=== PATIENT | female | born 1975 | race Caucasian/White ===

== ENCOUNTER 2020-08-25 10:09 | Outpatient (NON) | payer OTHER, SELFPAY ==
[2020-08-25 22:01] LABS: SARS-CoV-2 RNA PCR Positive
== END 2020-08-25 10:10 ==
LOC: ANHCOVIDDT 10:10
PROVIDERS: Visit Provider Family Medicine
DX: U07.1 COVID-19 (principal)
CPT/HCPCS: 87635; C9803; U0003

== ENCOUNTER → 2020-11-25 10:33 | Outpatient (CLI) | payer OTHER, SELFPAY ==
--- NOTE | ~2020-11-25 | MR_ITS ---
EXAMINATION: MR knee LT wo con DATE: 11/25/2020 11:16 INDICATION: Generalized left knee pain TECHNIQUE: Magnetic resonance imaging (MRI) of the left knee was performed without intravenous contra st. Sequences included coronal PD-weighted FSE, coronal PD-weighted FS FSE, sagittal T2-weighted FSE , sagittal PD-weighted FS FSE and axial PD weighted fat saturated FSE. COMPARISON: None. FINDINGS: Medial compartment: Medial meniscus is normal. Approximately 1.7 x 1 cm region of significant increased signal along the anterior weightbearing medial femoral condyle, unclear whether this represents fluid along a region o f partial-thickness chondral ulceration or more likely increased cartilage signal due to swelling or fibrillation without loss of cartilage thickness. Remaining cartilage is normal. Lateral compartment: Lateral meniscus is normal. Articular cartilage is normal. Patellofemoral compartment: Small region of full-thickness chondral ulceration with underlying cortical irregularity and subartic ular increased marrow signal at the superomedial aspect of the lateral patellar facet. Partial-thickn ess cartilage loss and deep fissuring along the more inferior aspect of the lateral patellar facet. T rochlear cartilage is normal. Ligaments and tendons: Anterior and posterior cruciate ligaments are normal. The medial collateral ligament and fibular merrill ateral ligament complex are normal. The extensor mechanism is normal. The visualized medial and later al hamstring tendons as well as the iliotibial band are normal. Fluid: Small left knee joint effusion collecting in the lateral gutter of the suprapatellar pouch. No loose osteochondral bodies identified. Osseous/other: There are regions of red marrow reexpansion the distal femur and proximal tibia. Low signal intensity bone island at the lateral tibial plateau. No fracture or pathologic marrow replacing process. Serpi ginous subcutaneous varicosities about the knee most prominent anteriorly. IMPRESSION: 1. 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 2. Additional chondromalacia, likely mild to moderate grade along the anterior weightbearing medial f emoral condyle. Reviewed, dictated and finalized at location B. IMPRESSION: 1. 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 2. Additional chondromalacia, likely mild to moderate grade along the anterior weightbearing medial femoral condyle.
== END ==
PROVIDERS: Visit Provider Nurse Practitioner Family
DX: M25.562 Pain in left knee (principal); M94.262 Chondromalacia, left knee
CPT/HCPCS: 73721

== ENCOUNTER → 2021-01-05 07:25 | Outpatient (CLI) | payer OTHER, SELFPAY ==
--- NOTE | ~2021-01-05 | XR_ITS ---
XR knee RT 3V 01/05/2021 07:52 Indication: Right knee pain Procedure: 3 views right knee Comparison: No prior studies for comparison. Findings: Mild tricompartment osteoarthritis of the right knee. No fracture, subluxation or dislocati on. No significant joint effusion. No foreign bodies. Impression: 1: Mild tricompartment osteoarthritis of the right knee. Reviewed, dictated and finalized at location B. Impression: 1: Mild tricompartment osteoarthritis of the right knee.
== END ==
PROVIDERS: PCP Family Medicine; Visit Provider Family Medicine
DX: M25.561 Pain in right knee (principal); M17.11 Unilateral primary osteoarthritis, right knee
CPT/HCPCS: 73562

== ENCOUNTER → 2021-02-28 14:54 | Outpatient (CLI) | payer OTHER, SELFPAY ==
--- NOTE | ~2021-02-28 | MM_ITS ---
EXAMINATION: MM screening deepak BI w jesús HISTORY: Screening mammogram TECHNIQUE: Craniocaudal and mediolateral oblique 3-D tomosynthesis images were obtained and synthetic 2-D images were generated. CAD analysis was submitted and interpreted. COMPARISON: 04/21/2019, 02/11/2018 bilateral digital screening mammogram examinations BREAST PARENCHYMAL COMPOSITION: The breasts are almost entirely fatty. FINDINGS: There is no evidence of suspicious mass, calcification, or architectural distortion to sugg est malignancy in either breast. There has been no suspicious interval change. IMPRESSION: 1. No mammographic evidence of malignancy. 2. Recommend routine screening mammography in one year. BI-RADS Category 1: Negative Reviewed, dictated and finalized at location A.
== END ==
PROVIDERS: Visit Provider Family Medicine
DX: Z12.31 Encounter for screening mammogram for malignant neoplasm of breast (principal)
CPT/HCPCS: 77063; 77067

== ENCOUNTER 2022-05-13 23:54 | Emergency (ER) | payer BC, SELFPAY ==
[2022-05-14 00:11] VITALS: BP 140/111; PULSE 102; RESP 18; TEMP 36.4; O2SAT 97
--- NOTE | 2022-05-14 00:19 | ED.EAR ---
HPI - Ear Problem General Chief complaint: Ear Stated complaint: Left ear pain Time Seen by Provider: 05/14/22 00:17 History of Present Illness HPI Narrative: 46-year-old female presents the emergency room complaints of left ear pain. Patient states for the last 7 days she has been experiencing sinus congestion postnasal drip. Endorses left ear ache began today. Denies any hearing changes or hearing loss. Denies fever. Related Data Home Medications Medication Instructions Recorded Confirmed ascorbic acid (vitamin C) 500 mg 500 mg PO DAILY 01/16/21 02/27/21 tablet cholecalciferol (vitamin D3) 50 50 mcg PO DAILY 01/16/21 02/27/21 mcg (2,000 unit) tablet vitamin B complex (B 1 tablet PO DAILY 01/16/21 02/27/21 Complex-Vitamin B12 tablet) Allergies Allergy/AdvReac Type Severity Reaction Status Date / Time No Known Allergies Allergy Unknown Verified 07/20/21 14:13 Review of Systems Review of Systems: CONSTITUTIONAL: Denies fever, chills, or sweats. EYES: Denies visual changes, redness, or discharge. ENT: Reports left ear pain CARDIOVASCULAR: Denies chest pain, palpitations, or edema. RESPIRATORY: Denies cough or dyspnea. GASTROINTESTINAL: Denies abdominal pain, nausea, vomiting, or diarrhea. GENITOURINARY: Denies dysuria or hematuria. SKIN: Denies rash or itching. MUSCULOSKELETAL: Denies back pain, joint pain, or myalgia. NEUROLOGIC: Denies headache, numbness, dizziness, or weakness. PSYCHIATRIC: Denies anxiety or depression. [facility] Past Medical History Medical History Arthritis Back pain with history of spinal surgery BMI greater than 40 Chondromalacia, patella Congestion of nasal sinus Diabetes Dizziness Ear ringing High cholesterol Knee effusion Left knee DJD Left knee pain Light headedness Medial meniscus tear Right knee DJD Right knee pain Vertigo Wears glasses Surgical History Surgical History History of classical section 1999 History of foot surgery Rt foot- 2019 [facility]ora [facility] Zobens History of hip replacement 2018 Dr. Trinidad History of laparoscopic cholecystectomy 2003 History of lumbar discectomy L5 2010, Dr. Aponte Family History Family History Other Carcinoma of colon Cerebrovascular accident Family history of arthritis Family history of chronic obstructive pulmonary disease Family history of congestive heart failure Family history of elevated blood lipids Family history of hearing loss Family history of lung disease Family history of malignant neoplasm Family history of osteoporosis Neuropathy Non-Hodgkin lymphoma Social History Social History Smoking packs per day: 1 Smoking cigarettes per day: 20.0 Years smoked: 20 Smoking pack-years: 20.00 Smoking end date: 03/12/15 Alcohol intake: never Gender identity (if verbalized by the patient): Female Exam Narrative: GENERAL: Well-appearing, well-nourished, no physical limitations, and in no acute distress. HEAD: Normocephalic, atraumatic. EYES: Conjunctivae normal, PERRLA and EOMI. ENT: External nose normal, Nares clear, no rhinorrhea or epistaxis. Mucous membranes moist. Oropharynx without tonsillar hypertrophy exudate or other lesions. Left TM erythematous NECK: Supple. No meningeal signs. No adenopathy or masses. No carotid bruits or JVD CHEST: Clear to auscultation. No respiratory distress. No wheezes rales or rhonchi. No tenderness. HEART: Regular rate and rhythm. No murmur heard. Normal peripheral pulses. EXTREMITIES: Normal range of motion. No edema. No clubbing or cyanosis SKIN: Warm, dry, no rash. No noted wounds NEURO: No focal deficits. Alert and oriented x3. MAEW. CN's II-XI intact bilaterally, normal gait PSYCH: Cooperative. Normal mood and af
== END 2022-05-14 00:25 | disposition home or self-care (01) ==
LOC: ANHED 05-14 00:22
PROVIDERS: Emergency Provider Nurse Practitioner Family
DX: H66.92 Otitis media, unspecified, left ear (principal); E11.9 Type 2 diabetes mellitus without complications; E78.00 Pure hypercholesterolemia, unspecified; M17.0 Bilateral primary osteoarthritis of knee; Z96.649 Presence of unspecified artificial hip joint; Z87.891 Personal history of nicotine dependence
CPT/HCPCS: 99283

== ENCOUNTER → 2022-11-24 13:29 | Emergency (ER) | payer BC, SELFPAY ==
[2022-11-24 13:40] VITALS: BP 146/82; PULSE 92; RESP 17; TEMP 37; O2SAT 100
--- NOTE | 2022-11-24 13:56 | ED.BACK ---
HPI - Back Pain/Injury General Chief Complaint: Back Pain/Injury Stated Complaint: upper back pain Time Seen by Provider: 11/24/22 13:49 History of Present Illness HPI Narrative: 47 y/o female presents with right mid back pain that has been going on for a year on and off but over the past couple of days it has flared up. patient denies any trauma or injury. patient states she slept at a hotel and the bed was hard. patient has been taking baclofen with no relief. patient has been working with pcp for pulled muscle. patient denies any other symptoms. Related Data Home Medications Medication Instructions Recorded Confirmed ascorbic acid (vitamin C) 500 mg 500 mg PO DAILY 01/16/21 02/27/21 tablet cholecalciferol (vitamin D3) 50 50 mcg PO DAILY 01/16/21 02/27/21 mcg (2,000 unit) tablet vitamin B complex (B 1 tablet PO DAILY 01/16/21 02/27/21 Complex-Vitamin B12 tablet) Allergies Allergy/AdvReac Type Severity Reaction Status Date / Time No Known Allergies Allergy Unknown Verified 11/24/22 13:55 Review of Systems Review of Systems: All systems reviewed & are unremarkable except as noted in HPI and below Constitutional: Constitutional: Reports no additional constitutional complaints Eyes: Eyes: Reports no additional eye complaints Musculoskeletal: Musculoskeletal: Reports other (back pain) [facility] Past Medical History Medical History Arthritis Back pain with history of spinal surgery BMI greater than 40 Chondromalacia, patella Congestion of nasal sinus Diabetes Dizziness Ear ringing High cholesterol Knee effusion Left knee DJD Left knee pain Light headedness Medial meniscus tear Right knee DJD Right knee pain Vertigo Wears glasses Surgical History Surgical History History of classical section 1999 History of foot surgery Rt foot- 2019 [facility]ora [facility] Zot[facility] History of hip replacement 2018 Dr. Trinidad History of laparoscopic cholecystectomy 2003 History of lumbar discectomy L5 2010, Dr. Aponte Family History Family History Other Carcinoma of colon Cerebrovascular accident Family history of arthritis Family history of chronic obstructive pulmonary disease Family history of congestive heart failure Family history of elevated blood lipids Family history of hearing loss Family history of lung disease Family history of malignant neoplasm Family history of osteoporosis Neuropathy Non-Hodgkin lymphoma Social History Social History Smoking packs per day: 1 Smoking cigarettes per day: 20.0 Years smoked: 20 Smoking pack-years: 20.00 Smoking end date: 03/12/15 Alcohol intake: never Gender identity (if verbalized by the patient): Female Exam Const: General: cooperative and healthy appearing HENMT: Head: normal to inspection Ears: hearing grossly normal bilaterally Eyes: General: appearance normal, both eyes and all related structures Neck: Neck: normal visual inspection Chest: Chest palpation & inspection: normal inspection of the chest Resp: Auscultation: clear to auscultation bilaterally Cardio: Rate: regular rate GI: GI Palp: Yes Soft to palpation Back/Spine/Pelvis: Back: back tenderness (right thoracic below scapula. increased pain with palpation and movement. ) Skin: General skin exam: normal color Neuro: General: oriented to person, oriented to place, oriented to time and patient oriented x3 Extrem: General: normal to inspection Psych: Appearance: grossly normal Course Course Emergency Course: no cva tenderness. palpation to right thoracic muscular. no recent trauma. patient agreeable with treating with medication and no x-ray r/t no trauma or recent injury Vital Signs Vital signs: Vital Signs Temperat
[2022-11-24 14:17] VITALS: PULSE 78; RESP 16; O2SAT 98
== END | disposition home or self-care (01) ==
PROVIDERS: Emergency Provider Nurse Practitioner Family
DX: M62.830 Muscle spasm of back (principal); M54.9 Dorsalgia, unspecified; Z87.891 Personal history of nicotine dependence; M19.90 Unspecified osteoarthritis, unspecified site; E11.9 Type 2 diabetes mellitus without complications; E78.5 Hyperlipidemia, unspecified
CPT/HCPCS: 99283

== ENCOUNTER 2023-03-29 09:08 | Emergency (ER) | payer BC, SELFPAY ==
--- NOTE | ~2023-03-29 | CT_ITS ---
Non-contrast Head CT History: Headache Technique: Axial non-contrast imaging of the brain was performed. Dose reduction technique was used on this scan by utilizing automated exposure control and iterative reconstruction technique. The dose -length product (DLP) was 605.33 mGy-cm. Findings: There is no evidence of intracranial hemorrhage, mass lesion, or acute infarct. Brain par enchyma appears normal. The ventricles and subarachnoid spaces are normal in size. The calvarium ap pears normal. The visualized paranasal sinuses and mastoid air cells are clear. Impression: No significant abnormality seen. Reviewed, dictated and finalized at location . Impression: No significant abnormality seen.
[2023-03-29 09:15] VITALS: BP 132/74; PULSE 75; RESP 18; TEMP 36.1; O2SAT 100
[2023-03-29] MEDS: SODIUM CHLORIDE 0.9% IV 1,000 ML 999 ML IV CONT (09:59)
[2023-03-29] MEDS: PROCHLORPERAZINE EDISYLATE 10 MG/2 ML VIAL IV PUSH (09:59)
[2023-03-29] MEDS: diphenhydrAMINE HCl INJ 50 MG/ML VIAL 25 MG IV PUSH (10:00)
--- NOTE | 2023-03-29 10:03 | ED.GENADULT ---
HPI - General Adult General Chief complaint: Headache Stated complaint: Headache Time Seen by Provider: 03/29/23 09:26 Source: patient Mode of arrival: ambulatory Limitations: no limitations History of Present Illness HPI narrative: This is a 47-year-old female who presents to the ED with chief complaint of headache onset x2 days. Patient states that it was gradual onset. She reports it started out in the occiput and now feels like it is in the bilateral frontal head area and behind the eyes. She reports intermittent dizziness but states she is not currently dizzy. She reports she has had a couple of headaches in the past few months but has no major migraine history. She states headache is not exertional and not provoked by exercise or position. She also notes 3 episodes of loose stools in the last couple of days. 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 Denies abdominal pain, chest pain, shortness of breath. Denies any falls, LOC, seizures. Denies numbness, weakness, speech changes. Related Data Home Medications Medication Instructions Recorded Confirmed ascorbic acid (vitamin C) 500 mg 500 mg PO DAILY 01/16/21 02/27/21 tablet cholecalciferol (vitamin D3) 50 50 mcg PO DAILY 01/16/21 02/27/21 mcg (2,000 unit) tablet vitamin B complex (B 1 tablet PO DAILY 01/16/21 02/27/21 Complex-Vitamin B12 tablet) Allergies Allergy/AdvReac Type Severity Reaction Status Date / Time No Known Allergies Allergy Unknown Verified 03/29/23 09:26 [facility] Past Medical History Medical History Arthritis Back pain with history of spinal surgery BMI greater than 40 Chondromalacia, patella Congestion of nasal sinus Diabetes Dizziness Ear ringing High cholesterol Knee effusion Left knee DJD Left knee pain Light headedness Medial meniscus tear Right knee DJD Right knee pain Vertigo Wears glasses Surgical History Surgical History History of classical section 1999 History of foot surgery Rt foot- 2019 [facility]ora [facility] Zob[facility] History of hip replacement 2018 Dr. Trinidad History of laparoscopic cholecystectomy 2003 History of lumbar discectomy L5 2010, Dr. Aponte Family History Family History Other Carcinoma of colon Cerebrovascular accident Family history of arthritis Family history of chronic obstructive pulmonary disease Family history of congestive heart failure Family history of elevated blood lipids Family history of hearing loss Family history of lung disease Family history of malignant neoplasm Family history of osteoporosis Neuropathy Non-Hodgkin lymphoma Social History Social History Smoking packs per day: 1 Smoking cigarettes per day: 20.0 Years smoked: 20 Smoking pack-years: 20.00 Smoking end date: 03/12/15 Alcohol intake: never Gender identity (if verbalized by the patient): Female Exam Narrative: GENERAL: Well-appearing, well-nourished, and in no acute distress. HEAD: Normocephalic, atraumatic. EYES: PERRLA and EOMI. ENT: Nares clear, no rhinorrhea or epistaxis. Mucous membranes moist. Oropharynx without tonsillar hypertrophy exudate or other lesions. NECK: Supple. No adenopathy or masses. CHEST: No respiratory distress. Clear to auscultation. No wheezes rales or rhonchi HEART: Regular rate and rhythm. No murmur heard. Normal peripheral pulses. ABDOMEN: Soft, nontender, nondistended, normal active bowel sounds. MSK: Normal range of motion. No edema. Ambulatory. SKIN: Warm, dry, no rash. NEURO: Alert and oriented x3. No focal deficits. Cranial nerves II through XII intact. PSYCH: Normal mood and affect. Course Vital Signs Vital signs: Vital Signs Temperature 96.9 F L 03/29/23 09:1
[2023-03-29 10:06] LABS: Basophils Percent Auto 0.3 % (0.2-1.2); Eosinophils Absolute Auto 0.3 K/mm3 (0-0.3); Eosinophils Percent Auto 5.7 % (0-4.4); Hematocrit 41.4 % (37.0-47.0); Hemoglobin 13.6 g/dL (12.0-15.0); Immature Granulocyte Absolute 0.01 K/mm3 (0.00-0.031); Immature Granulocyte Percent A 0.2 % (0-0.5); Lymphocytes Absolute Auto 2.27 K/mm3 (0.9-3.2); Lymphocytes Percent Auto 38.3 % (18.3-44.2); Mean Corpuscular HGB Conc 32.9 g/dl (32-36); Mean Corpuscular Hemoglobin 27.6 pg (26-34); Mean Platelet Volume 9.2 fl (7.4-10.4); Monocytes Absolute Auto 0.5 K/mm3 (0.1-0.6); Monocytes Percent Auto 7.8 % (2.6-8.5); Neutrophils Absolute Auto 2.8 K/mm3 (1.3-6.7); Neutrophils Percent Auto 47.7 % (45.5-73.1); Platelet Count Result 258 k/mm3 (150-375); Red Blood Count 4.93 M/mm3 (4.2-5.4); Red Cell Distribution Width 13.1 % (11.5-14.5); White Blood Count 5.9 K/mm3 (4.5-10.0)
[2023-03-29] MEDS: KETOROLAC 15 MG/ML VIAL (*BKC) IV PUSH (10:08)
[2023-03-29 10:09] VITALS: BP 115/52; PULSE 70; RESP 18; O2SAT 98
[2023-03-29 10:18] LABS: Alanine Aminotransferase 20 U/L (6-35); Albumin Level 4.9 g/dL (3.5-5.1); Alkaline Phosphatase 64 U/L (38-126); Anion Gap 8 mmol/L (8-16); Aspartate Amino Transferase 21 U/L (14-36); Bilirubin,Total 0.7 mg/dL (0.2-1.3); Blood Urea Nitrogen 16 mg/dL (7-17); Calcium 9.6 mg/dL (8.4-10.2); Carbon Dioxide 27 mmol/L (22-30); Chloride 102 mmol/L (98-107); Estimated CRCL calculation 161 ml/min; Estimated Glomerular Filt Rate > 60; Glucose 147 mg/dL (65-110); Sodium 137 mmol/L (137-145)
[2023-03-29 10:25] LABS: Appearance Urine Cloudy (Clear); Bacteria Urine Rare /hpf; Bilirubin Urine Negative (Negative); Blood Urine Negative (Negative); Color Urine Yellow (Yellow); Glucose Urine UA Negative (Negative); Ketones Urine Negative (Negative); Leukocyte Esterase Ur 2+ LEU/UL (Negative); Nitrate Urine Negative (Negative); Non Pathogenic Casts 0-2; Protein Urine Negative (Negative); RBC Urine 0-2 /hpf (0-2); Squamous Epithelial Cell Urine Moderate /hpf (Few); Urobilinogen Urine 0.2 mg/dL (<2.0)
[2023-03-29 10:28] LABS: Add Urine Microscopic? YES
[2023-03-29 11:04] VITALS: BP 121/53; PULSE 82; RESP 16; O2SAT 100
== END 2023-03-29 11:06 | disposition home or self-care (01) ==
PROVIDERS: Emergency Provider Physician Assistant; PCP Physician Assistant
DX: R51.9 Headache, unspecified (principal); E11.9 Type 2 diabetes mellitus without complications; E78.00 Pure hypercholesterolemia, unspecified; M17.0 Bilateral primary osteoarthritis of knee; Z96.649 Presence of unspecified artificial hip joint; Z87.891 Personal history of nicotine dependence
CPT/HCPCS: 36415; 70450; 80053; 81001; 81025; 85025; 87086; 96361; 96374; 96375; 99284; J0780; J1200; J1885; J7030

== ENCOUNTER → 2023-07-02 09:43 | Outpatient (CLI) | payer BC, SELFPAY ==
--- NOTE | ~2023-07-02 | MM_ITS ---
EXAMINATION: MM screening deepak BI w jesús HISTORY: Screening mammogram TECHNIQUE: Craniocaudal and mediolateral oblique 3-D tomosynthesis images were obtained and synthetic 2-D images were generated. CAD analysis was submitted and interpreted. COMPARISON: 02/28/2021, 04/21/2019 bilateral screening mammogram examinations BREAST PARENCHYMAL COMPOSITION: There are scattered areas of fibroglandular density. FINDINGS: There is no evidence of suspicious mass, calcification, or architectural distortion to sugg est malignancy in either breast. There has been no suspicious interval change. IMPRESSION: 1. No mammographic evidence of malignancy. 2. Recommend routine screening mammography in one year. BI-RADS Category 1: Negative Reviewed, dictated and finalized at location A.
== END ==
PROVIDERS: PCP Physician Assistant; Visit Provider Physician Assistant
DX: Z12.31 Encounter for screening mammogram for malignant neoplasm of breast (principal)
CPT/HCPCS: 77063; 77067

== ENCOUNTER 2024-11-16 13:19 | Outpatient (CLI) | payer BC, SELFPAY ==
--- NOTE | ~2024-11-16 | XR_ITS ---
EXAMINATION: XR lg joint inject/asp w image DATE: 11/16/2024 14:42 INDICATION: Right hip pain TECHNIQUE: Radiographs of the right hip were obtained. A time-out was performed to verify the patie nt's name, date of , and procedure to be performed. The procedure including the risks, benefits, and alternatives was discussed with the patient. Risks discussed included bleeding and infection. Th e patient understood the risks and agreed to proceed. The skin overlying the right hip joint was prep ped and draped in usual sterile fashion. Anesthetic was administered with 1% lidocaine subcutaneousl y. A 22 G spinal needle was advanced under fluoroscopic guidance into the joint. Injectate consisti ng of Omnipaque 240 was instilled to confirm appropriate placement. The steroid injectate was mixed ( 80 mg of Depo-Medrol, 2 cc of 0.5 Marcaine and 5 cc of 1% lidocaine) and injected. The needle was rem key and the entry site was cleaned and dressed. There were no immediate complications. Fluoroscopy exposure time was 2 minutes. The total number of images was 1. Dose: 20.1 Gycm2. FINDINGS: Real-time fluoroscopy demonstrates the needle and contrast in the right hip joint. IMPRESSION: Technically successful fluoroscopic guided right hip injection, as detailed above. Reviewed, dictated and finalized at location [] IMPRESSION: Technically successful fluoroscopic guided right hip injection, as detailed abo lore.
--- OUTSIDE RECORDS SUMMARY | 2024-11-16 15:22 | XMS_ITS | Encounter Summary ---
Author Organization [facility] Health Address [address] [place] [address] Care Team Providers Care Entry Level Truck Driver Name Role Phone Keyon Ochoa DC Primary Care Provider [phone] Encounter Details Date Type Department Care Team (Late st Contact Info) Description 08/17/2011 [facility] Outpatient Visit EXTERNAL NON-[facility] DEPT Devon Aponte MD RETIRED Social History Tobacco Use Types Packs/Day Years Used Date Smoking Tobacco: Every Day Cigarettes 0.5 18 Smokeless Tobacco: Never Alcohol Use Standard Drinks/Week Comments No 0 (1 standard drink = 0.6 oz pur e alcohol) Sex and Gender Information Value Date Recorded Sex Assigned at Not on file Gender Identity Not on file Sexual Orientation Not on file documented as of this encounter Plan of Treatment Not on file documented as of this encounter Visit Diagnoses Not on filedocumented in this encounter Care Teams Entry Level Truck Driver Relationship Specialty Start Date End Date Keyon Ochoa DC [address] [place] [address] PCP - General 05/16/11 documented as of this encounter
--- OUTSIDE RECORDS SUMMARY | 2024-11-16 15:22 | XMS_ITS | Referral Summary ---
Author Organization [facility] Address [address] [place] [address] Care Team Providers Care Fitness Trainer Name Role Phone Keyon Ochoa DC Primary Care Provider [phone] Source Comments [facility],non-owned Affiliates and Associated Physician Practices is amultiple site organization consisting of ambulatory clinics and hospital sitesin [place], [place], [place] and [place]. This disclosure is being madepursuant to the Care Everywhere program and may not contain all information available regarding this patient. Last updated 18.[facility] Allergies No known active allergies Medications * Be aware that medications may not be up to date on this document. Alwaysverify current medications with the patient. Medication Sig Dispensed Refills Start Date End Date Status hydrocodone-acetami nophen (NORCO) 5-325 MG tablet Take 1-2 Tabs by mouth every 6 hours as needed for Pain. 40 Tab 0 05/16/2011 Active acetaminophen (TYLENOL) 325 MG tablet Take 2 Tabs by mouth every 6 hours as needed for Pain. Maximum allowable Acetaminophen amount = 4 Grams (4000 mg) / 24 hours. 200 05/24/2011 Active Active Problems Problem Noted Date Diagnosed Date Leg pain 05/15/2011 Social History Tobacco Use Types Packs/Day Years Used Date Smoking Tobacco: Every Day Cigarettes 0.5 18 Smokeless Tobacco: Never Tobacco Cessation:Ready to Q uit: Yes; Counseling Given: Yes Alcohol Use Standard Drinks/Week Comments No 0 (1 standard drink = 0.6 oz pur e alcohol) Sex and Gender Information Value Date Recorded Sex Assigned at Not on file Gender Identity Not on file Sexual Orientation Not on file Last Filed Vital Signs Vital Sign Reading Time Taken Comments Blood Pressure 125/77 05/25/2011 7:10 AM CDT Pulse 116 05/25/2011 7:10 AM CDT Temperature 36.9 C (98.4 F) 05/25/2011 7:10 AM CDT Respiratory Rate 18 05/25/2011 7:10 AM CDT Oxygen Saturation 92% 05/25/2011 7:10 AM CDT Inhaled Oxygen Concentration - - Weight 145.2 kg (320 lb) 05/25/2011 2:53 AM CDT Height 180.3 cm (5' 11 ) 05/24/2011 7:06 AM CDT Body Mass Index 44.63 05/24/2011 7:06 AM CDT Plan of Treatment Not on file Advance Directives * FULL RESUSCITATION (Latest Code Status on File) Date Activated Date Inactivated Comments 05/24/2011 2:52 PM 05/25/2011 9:21 PM Care Teams Fitness Trainer Relationship Specialty Start Date End Date Keyon Ochoa DC [facility] [place] [address] PCP - General 05/16/11
--- OUTSIDE RECORDS SUMMARY | 2024-11-16 15:22 | XMS_ITS | Clinical Summary ---
Author Organization [facility] Address [address] [place] [address] Care Team Providers Care Senior Technical Analyst Name Role Phone Keyon Ochoa DC Primary Care Provider [phone] Source Comments [facility],non-owned Affiliates and Associated Physician Practices is amultiple site organization consisting of ambulatory clinics and hospital sitesin [place], [place], [place] and [place]. This disclosure is being madepursuant to the Care Everywhere program and may not contain all information available regarding this patient. Last updated 18.[facility] Allergies No known active allergies Medications * [...] Noted Date Diagnosed Date Leg pain 05/15/2011 Family History Relation Name Status Comments Father Alive Mother Alive Sister Alive Social History Tobacco Use Types Packs/Day Years [...] 05/24/2011 7:06 AM CDT Plan of Treatment Health Maintenance Due Date Last Done Comments COLOGUARD (AGES 45-75) - COL ON CA SCREENING 1975 COLON MONITORING 1975 COLONOSCOPY - COLON CA SCREENING 1975 CT COLONOGRAPHY - COLON CA SCREENING 1975 Colorectal Cancer Screening 1975 FIT - COLON CA SCREENING 1975 FLEX SIG - COLON CA SCREENING 1975 LIPID TESTING 1975 MAMMOGRAM 1975 PAP SMEAR 1975 HIV SCREENING 1990 HEPATITIS C SCREENING 09/26/1993 DTAP/TDAP/TD VACCINES (1 - Tdap) 1994 HEPATITIS B VACCINE (1 of 3 - 19+ 3-dose series) 1994 PNEUMOCOCCAL VACCINE (1 of 2 - PCV) 1994 COVID-19 VACCINE (2023-2 5 season) 2024 INFLUENZA VACCINE (#1) 2024 DEPRESSION SCREENING 09/09/2024 ZOSTER VACCINE (1 of 2) 2025 HIB VACCINE Aged Out No longer eligi ble based on patient's age to complete this topic HPV VACCINE Aged Out No longer eligi ble based on patient's age to complete this topic MENINGOCOCCAL (Group B) VACCINE Aged Out No longer eligible based on patient's age to complete this topic MENINGOCOCCAL VACCINE Aged Out No red margy eligible based on patient's age to complete this topic Advance Directives * FULL RESUSCITATION (Latest Code Status on File) Date Activated Date Inactivated Comments 05/24/2011 2:52 PM 05/25/2011 9:21 PM Care Teams Senior Technical Analyst Relationship Specialty Start Date End Date Keyon Ochoa DC [address] [place] [address] PCP - General 05/16/11
--- OUTSIDE RECORDS SUMMARY | 2024-11-16 15:22 | XMS_ITS | Encounter Summary ---
Author Organization [facility] Health Address [address] [place] [address] Care Team Providers Care Refractory Products Supervisor Name Role Phone Keyon Ochoa DC Primary Care Provider [phone] Encounter Details Date Type Department Care Team (Late st Contact Info) Description 08/06/2011 [facility] Outpatient Visit EXTERNAL NON-[facility] DEPT Devon Aponte MD RETIRED Social History [...] on filedocumented in this encounter Care Teams Refractory Products Supervisor Relationship Specialty Start Date End Date Keyon Ochoa DC [address] [place] [address] PCP - General 05/16/11 documented as of this encounter
--- OUTSIDE RECORDS SUMMARY | 2024-11-16 15:22 | XMS_ITS | Encounter Summary ---
Author Organization [facility] Health Address [address] [address] Care Team Providers Care Analytical Laboratory Technician Name Role Phone Keyon Ochoa DC Primary Care Provider [phone] Encounter Details Date Type Department Care Team (Late st Contact Info) Description 07/26/2011 [facility] on filedocumented in this encounter Care Teams Analytical Laboratory Technician Relationship Specialty Start Date End Date Keyon Ochoa DC [address] [place] [address] PCP - General 05/16/11 documented as of this encounter
--- OUTSIDE RECORDS SUMMARY | 2024-11-16 15:22 | XMS_ITS | Patient Health Summary ---
Author Organization [facility] Address [address] [place] [address] Care Team Providers Care Technical Administrator Name Role Phone Keyon Ochoa DC Primary Care Provider [phone] Note from [facility],non-owned Affiliates and Associated Physician Practices is amultiple site organization consisting of ambulatory clinics and hospital sitesin [place], [place], [place] and [place]. This disclosure is being madepursuant to the Care Everywhere program and may not contain all information available regarding this patient. Last updated 18.[facility] Allergies No known active allergies Medications * Be aware that medications may not be up to date on this document. Alwaysverify current medications with the patient. * hydrocodone-acetaminophen (NORCO) 5-325 MG tablet(Started 05/16/2011) Take 1-2 Tabs by mouth every 6 hours as needed for Pain. * acetaminophen (TYLENOL) 325 MG tablet(Started 05/24/2011) Take 2 Tabs by mouth every 6 hours as needed for Pain. Maximum allowable Acetaminophen amount = 4 Grams (4000 mg) / 24 hours. Active Problems Problem Noted Date Diagnosed Date [...] Mass Index 44.63 05/24/2011 7:06 AM CDT Procedures * CARDIAC EKG ORDER(Performed 05/25/2011) * XR LUMBAR SPINE IN OR 1VW(Performed 05/24/2011) Performed for Back pain * HCG URINE QUALITATIVE - POINT OF CARE(Performed 05/24/2011) * TYPE + SCREEN PANEL(Performed 05/23/2011) Performed for Other specified pre-operative examination * IMAGING/RADIOLOGY/XRAY RESULTS ORDER(Performed 11/02/2010) Results * CARDIAC EKG ORDER (05/25/2011 8:18 AM CDT) Narrative Transcriptions Document, Scanned - 05/25/2011 8:18 AM CDT Scanned Document CARDIAC SERVICES ORD ERABLES * XR SPINE LUMBAR SINGLE VIEW (05/24/2011 11:57 AM CDT) Anatomical Region Laterality Modality Spine Radiographic Jessy ging 05/24/2011 12:0 1 PM CDT Narrative 05/24/2011 12:01 PM CDT INDICATION: Back pain Single lateral crosstable view of the lumbosacral spine is provided. There is a metallic retractor instrument at the L5-S1 level. These findings were communicated to the operating room by our technologist. Procedure Note Daniela Antunez MD - 05/24/2011 INDICATION: Back pain Single lateral crosstable view of the lumbosacral spine is provided. There is a metallic retractor instrument at the L5-S1 level. These findings were communicated to the operating room by our technologist. Devon Aponte MD DIAGNOSTIC IMAGING O RDERABLES * HCG URINE QUALITATIVE - POINT OF CARE (05/24/2011 7:07 AM CDT) HCG Qual Urine neg Negative [facility] QC Verified yes Yes [facility] P[facility] T [facility] Urine specimen (specimen) URINE / Unknown 05/24/2011 7:07 AM CDT Devon Aponte MD LAB - POINT OF CARE ORDERABLES Performing Organization Address City/[facility]/ZIP Co de Phone Number [facility] [id number] [place] [address] * TYPE + SCREEN PANEL (05/23/2011 1:26 PM CDT) ABO Rh O Neg [facility] Antibody Screen Neg Negative [facility] BLOOD SPECIMEN / Unknown 05/23/2011 1:26 PM CDT 05/23/2011 2:40 PM CDT Devon Aponte MD LAB - BLOOD BANK ORD ERABLES Performing Organization Address City/[facility]/RUST Co de Phone Number [facility] [id number] [place] [address] * IMAGING/RADIOLOGY/XRAY RESULTS ORDER (11/02/2010) Anatomical Region Laterality Modality Other Keyon Ochoa DC IMAGING Care Teams Technical Administrator Relationship Specialty Start Date End Date Keyon Ochoa DC [address] [place] [address] PCP - General 05/16/11
--- OUTSIDE RECORDS SUMMARY | 2024-11-16 15:23 | XMS_ITS | Clinical Summary ---
Author Organization [facility] [facility] Address [address] [place] [address] Care Team Providers Care Control Analyst Name Role Phone Fela Guajardo Primary Care Provider [phone] Allergies No known active allergies Medications glimepiride (AMARYL) 2 mg tablet glimepiride 2 mg tablet Active insulin degludec (TRESIBA) 200 unit/mL (3 mL) pen for injection Active metFORMIN (GLUCOPHAGE) 1,000 mg tablet metformin 1,000 mg tablet Active rosuvastatin (CRESTOR) 40 mg tablet rosuvastatin 40 mg tablet Active atorvastatin (LIPITOR) 20 mg tablet Take 1 tablet (20 mg total) by mouth nightly Active fenofibrate (TRIGLIDE) 160 mg tablet Take 1 tablet every day by oral route. Active gabapentin (NEURONTIN) 300 mg capsule Active ofloxacin (OCUFLOX) 0.3 % ophthalmic solutionIndication s:Acute bacterial conjunctivitis of left eye instill 2 drops in affected eye(s) every 2 to 4 hours for 2 days, then 2 drops 4 times daily on days 3 through 7 5 mL 10/13/19 24 Active Additional Information Patient not taking.Reported on 10/16/2024 acetaminophen (TYLENOL) 325 mg tablet Take 2 tablets (650 mg total) by mouth every 6 (six) hours as needed 05/24/20 11 Active ascorbic acid (VITAMIN C) 1,000 mg tablet Take by oral route. Active baclofen (LIORESAL) 10 mg tablet TAKE 1 TABLET BY MOUTH THREE TIMES DAILY FOR 14 DAYS NEEDED. Active Dexcom G7 Clinical Education Manager misc as directed 02/17/20 24 Active Dexcom G7 Sensor device CHANGE SENSOR EVERY 10 DAYS DIRECTED 04/10/20 24 Active ibuprofen (ADVIL,MOTRIN) 800 mg tablet Take 1 tablet (800 mg total) by mouth 04/16/20 24 Active acidophilus-pectin , citrus 100 million cell-10 mg capsule Take by oral route. 08/14/20 21 Active Active Problems Problem Noted Date Diagnosed Date Diabetic peripheral neuropathy 05/30/2022 Hypercalcemia 05/30/2022 Hyperlipidemia 11/07/2021 Dyslipidemia 10/08/2021 Weight gain 10/08/2021 Neuropathy 06/21/2021 Numbness of foot 06/21/2021 Osteoarthritis of both knees 06/21/2021 Diabetes mellitus 07/12/2019 Arthralgia of hip 01/27/2016 Leg pain 05/15/2011 Encounters Date Type Department Care Team Description 10/16/2024 8:15 AM VEGETABLE INSPECTOR Office Visit [facility] at [address] [address] Diaz Maravilla NP Dry eye syndrome of both eyes (Primary Dx) from Last 3 Months Surgical History Surgery Date Site/Laterality Comments CHOLECYSTECTOMY SECTION BACK SURGERY HIP SURGERY Medical History Medical History Date Comments Diabetes (HCC) Family History Medical History Relation Name Comments Cancer Father Family history of malignant neoplasm - (Added by TW Conv) Arthritis Mother Family history of arthritis - (Added by TW Conv) Lung disease Mother Family history of lung disease - (Added by TW Conv) Arthritis Other Family history of arthritis - (Added by TW Conv) Cancer Other Family history of malignant neoplasm - (Added by TW Conv) Lung disease Other Family history of lung disease - (Added by TW Conv) Relation Name Status Comments Father Mother Other Social History Tobacco Use Types Packs/Day Years Used Date Smoking Tobacco: Former Tobacco Cessation:Counseling Given: Not Answered Comments Unknown Sex and Gender Information Value Date Recorded Sex Assigned at Not on file Legal Sex Female 2:20 PM VEGETABLE INSPECTOR Gender Identity Not on file Sexual Orientation Not on file Obstetrics History Last Filed Vital Signs Vital Sign Reading Time Taken Comments Blood Pressure 138/72 10/16/2024 8:05 AM VEGETABLE INSPECTOR Pulse 86 10/16/2024 8:05 AM VEGETABLE INSPECTOR Temperature 36.7 C (98.1 F) 10/16/2024 8:05 AM VEGETABLE INSPECTOR Respiratory Rate 20 10/16/2024 8:05 AM VEGETABLE INSPECTOR Oxygen Saturation 98% 10/16/2024 8:05 AM VEGETABLE INSPECTOR Inhaled Oxygen Concentration - - Weight 131.5 kg (290 lb) 10/16/2024 8:05 AM VEGETABLE INSPECTOR Height 177.8 cm (5' 10 ) 06/03/2024 9:20 AM CDT Body Mass Index 41.61 06/03/2024 9:20 AM CDT Plan of Treatment Health Maintenance Due Date Last Done Comments Albumin Creatinine Ratio, Urine 1975 Cervical Cancer Screening 1975 Colon Cancer Screening-Colonoscopy 1975 Depression Screening 1975 Hemoglobin A1C 1975 Hepatitis C Screening 1975 eGFR 1975 Dilated Eye Exam 1975 Foot Exam 1975 Lipid Panel 1975 DTaP/Tdap/Td Vaccine (1 - Tdap) 1986 Hepatitis B Screening 1993 Regular Well Visit/Exam 18-64 1993 Pneumococcal vaccine <65 (1 of 2 - PCV) 1994 Covid-19 Vaccine (3 - 2023-2 5 season) 2024 12/22/2020, 11/24/2020 Influenza Vaccine (#1) 2024 0, 06/09/2020, 07/25/2019, Additional history exists Breast Cancer Screening-Mammogram 07/02/2024 023, 02/28/2021 Insurance [employer] [place] [facility] Care Teams Control Analyst Relationship Specialty Start Date End Date Fela Guajardo PA [address] [place] [id number] PCP - General Physician Boatbuilder Apprentice Wood 10/13/23
--- OUTSIDE RECORDS SUMMARY | 2024-11-16 15:23 | XMS_ITS | Referral Summary ---
Author Organization [address] Address [address] [place] [address] Care Team Providers Care Commercial Drone Pilot Name Role Phone Fela Guajardo Primary Care Provider [phone] Encounters Date Type Department Care Team Description 10/16/2024 8:15 AM STEREOPLOTTER OPERATOR Office Visit [facility] at [address] [address] Diaz Maravilla NP Dry eye syndrome of both eyes (Primary Dx) from Last 3 Months Allergies No known active allergies Medications glimepiride [...] FOR 14 DAYS NEEDED. Active Dexcom G7 Adjunct Writing Instructor misc as directed 02/17/20 Active Dexcom G7 Sensor device CHANGE SENSOR EVERY 10 DAYS DIRECTED 04/10/20 Active ibuprofen (ADVIL,MOTRIN) 800 mg tablet Take 1 tablet (800 mg total) by mouth 04/16/20 Active acidophilus-pectin , citrus 100 million cell-10 mg capsule Take by oral route. 08/14/20 Active Active Problems Problem Noted Date Diagnosed Date Diabetic peripheral neuropathy 05/30/2022 Hypercalcemia 05/30/2022 Hyperlipidemia 11/07/2021 Dyslipidemia 10/08/2021 Weight gain 10/08/2021 Neuropathy 06/21/2021 Numbness of foot 06/21/2021 Osteoarthritis of both knees 06/21/2021 Diabetes mellitus 07/12/2019 Arthralgia of hip 01/27/2016 Leg pain 05/15/2011 Social History Tobacco Use Types Packs/Day Years Used Date Smoking Tobacco: Former Tobacco Cessation:Counseling Given: Not Answered Comments Unknown Sex and Gender Information Value Date Recorded Sex Assigned at Not on file Legal Sex Female 2:20 PM STEREOPLOTTER OPERATOR Gender Identity Not on file Sexual Orientation Not on file Last Filed Vital Signs Vital Sign Reading Time Taken Comments Blood Pressure 138/72 10/16/2024 8:05 AM STEREOPLOTTER OPERATOR Pulse 86 10/16/2024 8:05 AM STEREOPLOTTER OPERATOR Temperature 36.7 C (98.1 F) 10/16/2024 8:05 AM STEREOPLOTTER OPERATOR Respiratory Rate 20 10/16/2024 8:05 AM STEREOPLOTTER OPERATOR Oxygen Saturation 98% 10/16/2024 8:05 AM STEREOPLOTTER OPERATOR Inhaled Oxygen Concentration - - Weight 131.5 kg (290 lb) 10/16/2024 8:05 AM STEREOPLOTTER OPERATOR Height 177.8 cm (5' 10 ) 06/03/2024 9:20 AM CDT Body Mass Index 41.61 06/03/2024 9:20 AM CDT Plan of Treatment Not on file Insurance [place] [employer] [place] [employer] [place] Care Teams Commercial Drone Pilot Relationship Specialty Start Date End Date Fela Guajardo PA [address] [place] [id number] PCP - General Physician Business Specialist 10/13/23
--- OUTSIDE RECORDS SUMMARY | 2024-11-16 15:23 | XMS_ITS | Data Portability ---
Author Organization [facility], Main Office Address [address] [place] [address] Assessment No assessment recorded. Plan of Treatment Reminders Order Date Submit Date Provider Last Modified By Organization Details Last Modified Time Details Appointments None record ed. Lab None record ed. Referral None record ed. Procedures None record ed. Surgeries None record ed. Imaging None record ed. Medication Orders None record ed. Patient TargetsNo targets recorded. Patient InstructionsNo instructions recorded. Reason for Referral None Reported. Results Created Date Observation Date Name Description Value Unit Range Abnormal Flag Note LastModifiedBy Organization Detail LastModifiedTime Result Notes None recorded. Problems Name Problem SNOMED Code Status Onset Date Resolution Date Notes Provider Name and Address Organization Details Recorded Time Dyslipidemia 656618647 Active 2021 Not Available [facility] 3 18:03:01 Diabetic peripheral neuropathy 277380756 Active 2021 Not Available [facility] 3 18:03:01 Uncontrolled type 2 diabetes mellitus 130383493 Active 2021 Not Available [facility] 3 18:03:01 Hypercalcemia 73945923 Active 2021 Not Available [facility] 3 18:03:01 Weight gain 0032614 Active 2021 Not Available [facility] 3 18:03:01 Well controlled type 2 diabetes mellitus 212806214 Active 2022 Not Available [facility] 3 18:03:01 Problem Notes None recorded. Procedures Surgical History Date Name Laterality Status Provider Name and Address Organization Details Recorded Time 05/29/20 delivery completed Not Available [facility] 11/07/2022 23:57:40 Hip surgery completed Not Available [facility] 11/07/2022 23:57:40 Lumbar Spine Surgery completed Not Available [facility] 11/07/2022 23:57:40 Foot Surgery completed Not Available [facility] 11/07/2022 23:57:40 cholecystectomy completed Not Available [facility] 11/07/2022 23:57:40 Imaging Results None recorded. Procedure Notes None recorded. Medical Equipment None Reported. Medications Name Sig Start Date Stop Date Status Note LastModified by Organization Details LastModified Time cyclobenzap rine 10 mg tablet TAKE 1 TABLET BY MOUTH EVERY 8 HOURS active Not Available Not Available No t Available amoxicillin 500 mg capsule 08/14 completed Not Available Not Available Not Available atorvastati n 40 mg tablet Take 1 tablet every day by oral route. 08/24 completed Not Available Not Available Not Available glimepiride 2 mg tablet TAKE 2 TABLETS BY MOUTH TWICE DAILY 2022 active Not Available Not Available Not Avai lable dexamethaso ne 1 mg tablet Take 1 tablet as needed by oral route at bedtime for 1 day. active Not Available Not Available No t Available metformin 1,000 mg tablet TAKE 1 TABLET BY MOUTH TWICE DAILY BEFORE MEALS active Not Available Not Available No t Available gabapentin 300 mg capsule active Not Available Not Available Not Available cefdinir 300 mg capsule TAKE 1 CAPSULE BY MOUTH EVERY 12 HOURS WITH MEALS FOR 7 DAYS 05/30 completed Not Available Not Available Not Available naproxen 500 mg tablet TAKE 1 TABLET BY MOUTH TWICE DAILY WITH FOOD active Not Available Not Available No t Available amoxicillin 875 mg-potassiu m clavulanate 125 mg tablet 05/30 completed Not Available Not Available Not Available Novolog Mix 70-30 FlexPen U-100 Insulin 100 unit/mL subcutaneou s pen Inject by subcutane ous route. 11/28 completed Not Available Not Available Not Available rosuvastati n 40 mg tablet Take 1 tablet every day by oral route at bedtime for 90 days. active Not Available Not Available No t Available fenofibrate 160 mg tablet Take 1 tablet every day by oral route. active Not Available Not Available No t Available pregabalin 75 mg capsule TAKE 1 CAPSULE BY MOUTH TWICE DAILY active Not Available Not Available No t Available BD Ultra-Fine Short Pen Needle 31 gauge x 5/16 active Not Available Not Available Not Available acidophilus 100 million cell-pectin , citrus 10 mg capsule Take by oral route. 2020 active Not Available Not Available Not Avai lable Jardiance 25 mg tablet 08/14 completed Not Available Not Available Not Available Tresiba FlexTouch U-200 insulin 200 unit/mL (3 mL) subcutaneou s pen INJECT 40 UNITS UNDER SKIN EVERY DAY active Not Available Not Available No t Available Ozempic 0.25 mg or 0.5 mg (2 mg/1.5 mL) subcutaneou s pen injector Inject 0.5 mg twice a day by subcutane ous route before meals for 90 days. 11/28 completed Not Available Not Available Not Available Dexcom G6 Sensor device CHANGE EVERY 10 DAYS active Not Available Not Available No t Available Dexcom G6 Consumer Sales Representative active Not Available Not Available Not Available Dexcom G6 Transmitter device CHANGE EVERY 3 MONTHS active Not Available Not Available No t Available BD Columba 2nd Gen Pen Needle 32 gauge x 5/32 USE TO INJECT TRESIBA DAILY AND OZEMPIC WEEKLY active Not Available Not Available No t Available Ozempic 1 mg/dose (4 mg/3 mL) subcutaneou s pen injector INJECT 1MG UNDER THE SKIN EVERY WEEK active Not Available Not Available No t Available Ozempic 2 mg/dose (8 mg/3 mL) subcutaneou s pen injector Inject 2 mg every week by subcutane ous route for 28 days. active Not Available Not Available No t Available Vitals Date Recorded Body mass index (BMI) Body height Oxygen saturation Oxygen saturation in Arterial blood by Pulse oximetry Heart rate Body temperature Body weight Systolic blood pressure Diastolic blood pressure Provider Name and Address Organization Details Last Updated DateTime 1 46.8 kg/m2 172.72 cm 96 % 96 % 82 /min 98.4 [degF] 494755. 45 g 120 mm[Hg] 64 mm[Hg] Not Available [facility] 3 23:57:45 Date Recorded Body mass index (BMI) Body height Oxygen saturation Oxygen saturation in Arterial blood by Pulse oximetry Heart rate Body temperature Body weight Systolic blood pressure Diastolic blood pressure Provider Name and Address Organization Details Last Updated DateTime 2 47 kg/m2 172.72 cm 97 % 97 % 83 /min 97.8 [degF] 445992. 04 g 130 mm[Hg] 75 mm[Hg] Not Available [facility] 3 23:57:45 Date Recorded Body mass index (BMI) Body height Oxygen saturation Oxygen saturation in Arterial blood by Pulse oximetry Heart rate Body temperature Body weight Systolic blood pressure Diastolic blood pressure Provider Name and Address Organization Details Last Updated DateTime 2 45.4 kg/m2 172.72 cm 98 % 98 % 88 /min 98 [degF] 904737. 96 g 125 mm[Hg] 80 mm[Hg] Not Available [facility] 3 23:57:45 Date Recorded Body height Body temperature Provider N ziggy and Address Organization Details Last Updated DateTime 10/23/2021 172.72 cm 98.3 [degF] Not Available [facility] 11/07/2022 23:57:45 Social History Question Answer Notes LastModified by Organizat ion Details LastModified Time Tobacco Smoking Status Former Smoker quit 2014 Not Available [facility] 11/07/2022 23:57:12 What Is Your Level Of Alcohol Consumption? Occasional [id number] Information not available 11/07/2022 What Is Your Level Of Caffeine Consumption? Moderate [id number] Information not available 11/07/2022 In The 14 Days Before Symptom Onset, Have You Had Close Contact With A Laboratory-confir med COVID-19 While That Case Was Ill? No [id number] Information not available 11/07/2022 In The 14 Days Before Symptom Onset, Have You Had Close Contact With A Person Who Is Under Investigation For COVID-19 While That Person Was Ill? No [id number] Information not available 11/07/2022 What Type Of Diet Are You Following? REGULAR [id number] Information not available 11/07/2022 What Is The Highest Grade Or Level Of School You Have Completed Or The Highest Degree You Have Received? [id number] Information not available 11/07/2022 When Did You Quit Smoking? 6-10yearssince lastcigarette [id number] Information not available 11/07/2022 What Is Your Relationship Status? [id number] Information not available 11/07/2022 Do You Use Any Illicit Or Recreational Drugs? No [id number] Information not available 11/07/2022 Has Tobacco Cessation Counseling Been Provided? No [id number] Information not available 11/07/2022 Have You Recently Traveled Abroad? No [id number] Information not available 11/07/2022 Do You Have Any Dietary Restrictions? No [id number] Information not available 11/07/2022 Do You Or Have You Ever Used Any Other Forms Of Tobacco Or Nicotine? No [id number] Information not available 11/07/2022 Sex: Female Functional Status None recorded. Mental Status None recorded. Family History Relationship Description Onset Age of this Age Resolved Age Notes LastModified by Organization Details LastModified Time Mother Arthritis [id number] Not available 11/07/2022 23:57:41 Mother Hypercholest erolemia [id number] Not available 11/07/2022 23:57:41 Maternal Aunt Diabetes mellitus [id number] Not available 11/07/2022 23:57:41 Maternal Uncle Diabetes mellitus [id number] Not available 11/07/2022 23:57:41 Medical History Condition Response DIABETES, TYPE Y OBESITY Y HIGH CHOLESTEROL / HYPERLIPIDEMIA Y Gynecological HistoryNo gynecological history recorded. Obstetrics History GPAL:G 0 P 0 0 0 0 Past Encounters Encounter ID Performer Location Encounter Start Date Encounter Closed Date Diagnosis/Indication Diagnosis SNOMED-CT Code Diagnosis ICD10 Code Diagnosis Note [id number] [facility] [address] [place] [address] 08/14/2021 00:00:00 08/14/2021 13:47:08 [id number] [facility] [place] [facility] [address] [place] [address] 10/09/2021 00:00:00 10/09/2021 12:21:23 [id number] [facility] [place] [facility] [address] [place] [address] 10/23/2021 00:00:00 10/23/2021 14:28:00 [id number] [facility] [place] [facility] [address] [place] [address] 11/28/2021 00:00:00 11/28/2021 11:30:39 [id number] [facility] [place] [facility] [address] [place] [address] 05/30/2022 00:00:00 05/30/2022 18:29:35 Health Concerns Section Related Observation LastModified by Organization Detai ls LastModified Time None Recorded Concern Status LastModified by Organization Details LastModified Time None Recorded Advance Directives Directive None Recorded Payers None recorded. OBGyn Episode No OBEpisode recorded.
--- OUTSIDE RECORDS SUMMARY | 2024-11-16 15:23 | XMS_ITS | Data Portability ---
Author Organization [facility] MARY KATEAubrey Limaia Antony Address [address] [place] [address] Care Team Providers Care Medical Assistant Instructor Name Role Phone FELA EDWARDS Primary Care Provider Assessment Encounter Date Assessment Date Assessment LastModified by Organization Details LastModified Time 04/16/2024 04/16/2024 Sections of the HPI, exam and assessment completed by MILTON Gleason student and have been reviewed by me. I agree with the exam findings, assessment and plan except where specifically documented or amended. -Fela Edwards, [facility], PAMandy [email or web address] Not available 04/16/2024 10:37:46 Plan of Treatment Reminders Order Date Submit Date Provider Last Modified By Organization Details Last Modified Time Details Appointments None recorded. Lab HbA1c (hemoglobin A1c), blood 2023 024 [email or web address] In-Office Order, Internal Use Only DO Not Attach Compendium DO Not Attach Compendium, Do Not Delete/merge, [id number] 4 08:42:45 CMP, serum or plasma 2023 024 [place] [facility], [address], [place], [address], 4 07:17:49 lipid panel, serum 2023 CONNIE [facility], [address], [place], [address], 4 07:17:48 CBC w/ auto diff 2023 024 [facility], [address], [place], [address], 4 07:17:49 TSH + free T4, serum 2023 024 [facility], [address], [place], [address], 4 07:17:48 microalbumi n/creatinin e, mass ratio, urine 2023 024 [facility], [address], [place], [address], 4 10:15:15 HbA1c (hemoglobin A1c), blood 2023 024 [email or web address] In-Office Order, Internal Use Only DO Not Attach Compendium DO Not Attach Compendium, Do Not Delete/merge, [id number] 4 16:45:41 PTH (parathyroi d hormone), intact + calcium, serum or plasma 2022 023 [facility], [address], [place], [address], 3 16:12:58 TSH + free T4, serum 2022 023 [facility], [address], [place], [address], 3 16:12:57 lipid panel, serum [address] [facility], [address], [place], [address], 3 07:15:19 CMP, serum or plasma [address] [facility], [address], [place], [address], 3 07:15:19 CBC w/ auto diff 2022 023 [facility], [address], [place], [address], 3 07:15:21 HbA1c (hemoglobin A1c), blood 2022 023 [email or web address] In-Office Order, Internal Use Only DO Not Attach Compendium DO Not Attach Compendium, Do Not Delete/merge, [id number] 3 09:27:41 HbA1c (hemoglobin A1c), blood 2022 023 [email or web address] In-Office Order, Internal Use Only DO Not Attach Compendium DO Not Attach Compendium, Do Not Delete/merge, [id number] 3 16:40:05 Referral gastroenter ologist referral - DO NOT REFER TO [facility] 2023 024 Catrachita Jordan MD, [address], [place], [address], 4 08:02:35 physical therapist referral 2023 024 [email or web address] [facility] [address] , [place], [address], 4 08:02:35 gastroenter ologist referral 2022 023 [facility], [address], [place], [address], 4 11:59:42 otolaryngol ogist referral 2022 023 [email or web address] [facility], [address], [place], [address], 3 17:20:16 Procedures None recorded. Surgeries None recorded. Imaging MAMMO, screening, bilateral 2023 024 [facility], [address], [place], [address], 4 07:53:31 MAMMO, screening, bilateral 2022 023 [facility] , [address], [address] [address], [place], [address], 3 12:46:46 Medication Orders Trulicity 3 mg/0.5 mL subcutaneou s pen injector 2023 024 [facility], [address], [place], [place], [id number], 4 13:53:07 ibuprofen 800 mg tablet 2023 024 [facility], [address], [place], [place], [id number], 4 09:13:13 Trulicity 3 mg/0.5 mL subcutaneou s pen injector 2023 024 [facility]007, [address], [place], [place], [id number], 4 09:03:41 Trulicity 0.75 mg/0.5 mL subcutaneou s pen injector 2022 023 [facility], [address], [place], [place], [id number], 3 16:39:38 metformin 1,000 mg tablet 2022 023 [place] [facility] #75796, [address], [place], [place], [id number], 3 09:44:16 glimepiride 2 mg tablet 2022 024 [place] [facility], [address], [place], [place], [id number], 4 09:00:54 atorvastati n 20 mg tablet 2022 023 [facility] #24652, [address], [place], [place], [id number], 3 09:44:36 Singulair 10 mg tablet 2022 023 [facility] #21007, [address], [place], [place], [id number], 3 09:42:56 amoxicillin 875 mg-potassiu m clavulanate 125 mg tablet 2022 023 [facility] #56677, [address], [place], [place], [id number], 4 08:43:23 cyclobenzap rine 10 mg tablet 2022 023 [facility] #83699, [address], [place], [place], [id number], 4 16:47:35 Patient TargetsNo targets recorded. 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 Referring Physician: Fela Edwards, Family Medicine, Encounter Date: 10/22/2022 Insurance Coordinator Referral for Screening for malignant neoplasm of colon Referring Physician: Fela Edwards [facility] Mary, Encounter Date: 05/29/2023 Physical Therapist Referral for Lateral epicondylitis of right humerus Referring Physician: Fela Edwards [facility] Mary, Encounter Date: 01/29/2024 Insurance Coordinator Referral for Screening for malignant neoplasm of colon DO NOT REFER TO [facility] Referring Physician: Family Mary Degroot, Encounter Date: 01/29/2024 Results Created Date Observation Date Name Description Value Unit Range Abnormal Flag Note LastModifiedBy Organization Detail LastModifiedTime 10/22/19 23 10/22/2022 HbA1c (hemo globi n A1c), blood HbA1c 9.8% Not Available In-Office Order Internal Use Only DO Not Attach Compendium DO Not Attach Compendium, Do Not Delete/merge, [id number] 10/22/2022 16:10:17 05/29/20 23 05/30/2023 LIPID PANEL cholesterol, total 222 mg/dL 100-19 9 above high normal Not Available [facility] ([facility]) [address] [place], [address], 05/30/2023 07:15:18 05/29/20 23 05/30/2023 LIPID PANEL triglyceride s 116 mg/dL 0-149 Not Available [facility] ([facility]) [address] [place], [address], 05/30/2023 07:15:18 05/29/20 23 05/30/2023 LIPID PANEL HDL cholesterol 56 mg/dL >39 Not Available [facility] ([facility]) [address] [place], [address], 05/30/2023 07:15:18 05/29/20 23 05/30/2023 LIPID PANEL VLDL cholesterol jose e 21 mg/dL 5-40 Not Available [facility] ([facility]) [address] [place], [address], 05/30/2023 07:15:18 05/29/20 23 05/30/2023 LIPID PANEL LDL chol calc ([facility]) 145 mg/dL 0-99 above high normal Not Available [facility] ([facility]) [address] [place], [address], 05/30/2023 07:15:18 05/29/20 23 05/30/2023 COMP. METAB OLIC PANEL (14) glucose 137 mg/dL 70-99 above high normal Not Available [facility] ([facility]) [address] [place], [address], 05/30/2023 07:15:19 05/29/20 23 05/30/2023 COMP. METAB OLIC PANEL (14) BUN 13 mg/dL 6-24 Not Available [facility] ([facility]) [address] [place], [address], 05/30/2023 07:15:19 05/29/20 23 05/30/2023 COMP. METAB OLIC PANEL (14) creatinine 0.53 mg/dL 0.57-1 .00 below low normal Not Available [facility] ([facility]) [address] [place], [address], 05/30/2023 07:15:19 05/29/20 23 05/30/2023 COMP. METAB OLIC PANEL (14) eGFR 115 mL/mi n/1.7 3 >59 Not Available [facility] ([facility]) [address] [place], [address], 05/30/2023 07:15:19 05/29/20 23 05/30/2023 COMP. METAB OLIC PANEL (14) BUN/creatini ne ratio 25 9-23 above high normal Not Available [facility] ([facility]) [address] [place], [address], 05/30/2023 07:15:19 05/29/20 23 05/30/2023 COMP. METAB OLIC PANEL (14) sodium 137 mmol/ L 134-14 4 Not Available [facility] ([facility]) [address] [place], [address], 05/30/2023 07:15:19 05/29/20 23 05/30/2023 COMP. METAB OLIC PANEL (14) potassium 4.4 mmol/ L 3.5-5. 2 Not Available [facility] ([facility]) [address] [place], [address], 05/30/2023 07:15:19 05/29/20 23 05/30/2023 COMP. METAB OLIC PANEL (14) chloride 102 mmol/ L 96-106 Not Available [facility] ([facility]) [address] [place], [address], 05/30/2023 07:15:19 05/29/20 23 05/30/2023 COMP. METAB OLIC PANEL (14) carbon dioxide, total 24 mmol/ L 20-29 Not Available [facility] ([facility]) [address] [place], [address], 05/30/2023 07:15:19 05/29/20 23 05/30/2023 COMP. METAB OLIC PANEL (14) calcium 9.4 mg/dL 8.7-10 .2 Not Available [facility] ([facility]) [address] [place], [address], 05/30/2023 07:15:19 05/29/20 23 05/30/2023 COMP. METAB OLIC PANEL (14) protein, total 6.5 g/dL 6.0-8. 5 Not Available [facility] ([facility]) [address] [place], [address], 05/30/2023 07:15:19 05/29/20 23 05/30/2023 COMP. METAB OLIC PANEL (14) albumin 4.5 g/dL 3.9-4. 9 Not Available [facility] ([facility]) [address] [place], [address], 05/30/2023 07:15:19 05/29/20 23 05/30/2023 COMP. METAB OLIC PANEL (14) globulin, total 2.0 g/dL 1.5-4. 5 Not Available [facility] ([facility]) [address] [place], [address], 05/30/2023 07:15:19 05/29/20 23 05/30/2023 COMP. METAB OLIC PANEL (14) A/G ratio 2.3 1.2-2. 2 above high normal Not Available [facility] ([facility]) [address] [place], [address], 05/30/2023 07:15:19 05/29/20 23 05/30/2023 COMP. METAB OLIC PANEL (14) bilirubin, total 0.5 mg/dL 0.0-1. 2 Not Available [facility] ([facility]) [address] [facility], [place], [address], 05/30/2023 07:15:19 05/29/20 23 05/30/2023 COMP. METAB OLIC PANEL (14) alkaline phosphatase 58 IU/L 44-121 Not Available [facility] ([facility]) [address] [facility], [place], [address], 05/30/2023 07:15:19 05/29/20 23 05/30/2023 COMP. METAB OLIC PANEL (14) AST (SGOT) 17 IU/L 0-40 Not Available [facility] ([facility]) [address] [place], [address], 05/30/2023 07:15:19 05/29/20 23 05/30/2023 COMP. METAB OLIC PANEL (14) ALT (SGPT) 14 IU/L 0-32 Not Available [facility] ([facility]) [address] [facility], [place], [address], 05/30/2023 07:15:19 05/29/20 23 05/29/2023 AMBIG ABBRE V CMP14 DEFAU LT ambig abbrev CMP14 default Commen t A hand- writt en panel /prof ile was recei melvi from your offic e. In accor dance with the [facility] Regine winter Test Code Polic y dated March 2003, we have compl eted your order by using the close st curre ntly or forme rly recog nized AMA panel . We have siddharth pinzon Compr ehens ezequiel Metab olic Panel (14), Test Code #32[address]. If this is not the testi ng you wishe d to recei ve on this speci men, pleas e conta ct the [facility] Clien t Inqui ry/Te chnic al Servi williams Depar tment to kalen fy the test order . We appre ciate your busin ess. Not Available [facility] ([facility]) [address] [place], [address], 05/30/2023 07:15:20 05/29/20 23 05/29/2023 YANELISIG ABBRE V LP DEFAU LT ambig abbrev LP default Commen t A hand- writt en panel /prof ile was recei melvi from your offic e. In accor dance with the [facility] Regine winter Test Code Polic y dated March 2003, we have compl eted your order by using the close st curre ntly or forme rly recog nized AMA panel . We have siddharth pinzon Lipid Panel , Test Code #30[address]. If this is not the testi ng you wishe d to recei ve on this speci men, pleas e conta ct the [facility] Clien t Inqui ry/Te chnic al Servi williams Depar tment to kalen fy the test order . We appre ciate your busin ess. Not Available [facility] ([facility] [address] [place], [address], 05/30/2023 07:15:20 05/29/20 23 05/30/2023 CBC WITH DIFFE RENTI AL/PL ATELE T WBC 4.3 x10e3 /uL 3.4-10 .8 Not Available [facility] ([facility]) [address] [facility], [place], [address], 05/30/2023 07:15:21 05/29/20 23 05/30/2023 CBC WITH DIFFE RENTI AL/PL ATELE T RBC 4.47 x10e6 /uL 3.77-5 .28 Not Available [facility] ([facility]) [address] [facility], [place], [address], 05/30/2023 07:15:21 05/29/20 23 05/30/2023 CBC WITH DIFFE RENTI AL/PL ATELE T hemoglobin 12.4 g/dL 11.1-1 5.9 Not Available [facility] ([facility]) [address] [facility], [place], [address], 05/30/2023 07:15:21 05/29/20 23 05/30/2023 CBC WITH DIFFE RENTI AL/PL ATELE T hematocrit 37.0 % 34.0-4 6.6 Not Available [facility] ([facility]) [address] [facility], [place], [address], 05/30/2023 07:15:21 05/29/20 23 05/30/2023 CBC WITH DIFFE RENTI AL/PL ATELE T MCV 83 fL 79-97 Not Available [facility] ([facility]) [address] [facility], [place], [address], 05/30/2023 07:15:21 05/29/2005/30/2023 CBC WITH DIFFE RENTI AL/PL ATELE T MCH 27.7 pg 26.6-3 3.0 Not Available [facility] ([facility]) [address] [facility], [place], [address], 05/30/2023 07:15:21 05/29/20 23 05/30/2023 CBC WITH DIFFE RENTI AL/PL ATELE T MCHC 33.5 g/dL 31.5-3 5.7 Not Available [facility] ([facility]) [address] [facility], [place], [address], 05/30/2023 07:15:21 05/29/20 23 05/30/2023 CBC WITH DIFFE RENTI AL/PL ATELE T RDW 13.3 % 11.7-1 5.4 Not Available [facility] ([facility]) [address] [facility], [place], [address], 05/30/2023 07:15:21 05/29/20 23 05/30/2023 CBC WITH DIFFE RENTI AL/PL ATELE T platelets 272 x10e3 /uL 150-45 0 Not Available [facility] ([facility]) [address] [facility], [place], [address], 05/30/2023 07:15:21 05/29/20 23 05/30/2023 CBC WITH DIFFE RENTI AL/PL ATELE T neutrophils 48 % notest ab. Not Available [facility] ([facility]) [address] [facility], [place], [address], 05/30/2023 07:15:21 05/29/20 23 05/30/2023 CBC WITH DIFFE RENTI AL/PL ATELE T lymphs 37 % notest ab. Not Available [facility] ([facility]) [address] [facility], [place], [address], 05/30/2023 07:15:21 05/29/20 23 05/30/2023 CBC WITH DIFFE RENTI AL/PL ATELE T monocytes 9 % notest ab. Not Available [facility] ([facility]) [address] [facility], [place], [address], 05/30/2023 07:15:21 05/29/20 23 05/30/2023 CBC WITH DIFFE RENTI AL/PL ATELE T eos 5 % notest ab. Not Available [facility] ([facility]) [address] [facility], [place], [address], 05/30/2023 07:15:21 05/29/20 23 05/30/2023 CBC WITH DIFFE RENTI AL/PL ATELE T basos 1 % notest ab. Not Available [facility] ([facility]) [address] [facility], [place], [address], 05/30/2023 07:15:21 05/29/20 23 05/30/2023 CBC WITH DIFFE RENTI AL/PL ATELE T neutrophils (absolute) 2.1 x10e3 /uL 1.4-7. 0 Not Available [facility] ([facility]) [address] [facility], [place], [address], 05/30/2023 07:15:21 05/29/20 23 05/30/2023 CBC WITH DIFFE RENTI AL/PL ATELE T lymphs (absolute) 1.6 x10e3 /uL 0.7-3. 1 Not Available [facility] ([facility]) [address] [place], [address], 05/30/2023 07:15:21 05/29/20 23 05/30/2023 CBC WITH DIFFE RENTI AL/PL ATELE T monocytes(ab solute) 0.4 x10e3 /uL 0.1-0. 9 Not Available [facility] ([facility]) [address] [facility], [place], [address], 05/30/2023 07:15:21 05/29/20 23 05/30/2023 CBC WITH DIFFE RENTI AL/PL ATELE T eos (absolute) 0.2 x10e3 /uL 0.0-0. 4 Not Available [facility] ([facility]) [address] [place], [address], 05/30/2023 07:15:21 05/29/20 23 05/30/2023 CBC WITH DIFFE RENTI AL/PL ATELE T baso (absolute) 0.0 x10e3 /uL 0.0-0. 2 Not Available [facility] ([facility]) [address] [place], [address], 05/30/2023 07:15:21 05/29/20 23 05/30/2023 CBC WITH DIFFE RENTI AL/PL ATELE T immature granulocytes 0 % notest ab. Not Available [facility] ([facility]) [address] [facility], [place], [address], 05/30/2023 07:15:21 05/29/20 23 05/30/2023 CBC WITH DIFFE RENTI AL/PL ATELE T immature grans (abs) 0.0 x10e3 /uL 0.0-0. 1 Not Available [facility] ([facility]) [address] [place], [address], 05/30/2023 07:15:21 05/29/20 23 05/30/2023 TSH+F REE T4 TSH 1.760 uIU/m L 0.450- 4.500 Not Available [facility] ([facility]) [address] [place], [address], 05/30/2023 16:12:57 05/29/20 23 05/30/2023 TSH+F REE T4 T4,free(dire ct) 1.18 NG/dL 0.82-1 .77 Not Available [facility] ([facility]) [address] [place], [address], 05/30/2023 16:12:57 05/29/20 23 05/30/2023 PTH INTAC T+JOSE E CIUM, IONIZ ED calcium, ionized, serum 5.1 mg/dL 4.5-5. 6 Not Available [facility] ([facility]) [address] [place], [address], 05/30/2023 16:12:58 05/29/20 23 05/30/2023 PTH INTAC T+JOSE E CIUM, IONIZ ED PTH, intact - pg/mL Test not perfo rmed. No plasm a speci men recei melvi. SPECI MEN REQUI RED: PLASM A FROM LAVEN NATHANIEL TOP TUBE Not Available [facility] ([facility]) [address] [facility], [place], [address], 05/30/2023 16:12:58 05/29/20 23 05/30/2023 SPECI MEN STATU S REPOR T specimen status report TNP Test not perfo rmed. No plasm a speci men recei melvi. TEST: 54169 0 PTH, Intac t Panel : [id number] 2 SPECI MEN REQUI RED: PLASM A FROM LAVEN NATHANIEL TOP TUBE Not Available [facility] ([facility]) [address] [facility], [place], [address], 05/30/2023 16:12:57 05/29/20 23 05/29/2023 HbA1c (hemo globi n A1c), blood HbA1c 7.7 Not Available In-Office Order Internal Use Only DO Not Attach Compendium DO Not Attach Compendium, Do Not Delete/merge, [id number] 05/29/2023 09:27:33 12/19/19 24 12/19/2023 HbA1c (hemo globi n A1c), blood HbA1c 8.9 % Not Available In-Office Order Internal Use Only DO Not Attach Compendium DO Not Attach Compendium, Do Not Delete/merge, [id number] 12/19/2023 16:45:23 01/29/20 24 01/30/2024 ALBUM IN/CR EAT RATIO , RANDO M UR creatinine, urine 86.5 mg/dL notest ab. Not Available [facility] ([facility]) [address] [facility], [place], [address], 01/30/2024 10:15:14 01/29/20 24 01/30/2024 ALBUM IN/CR EAT RATIO , RANDO M UR albumin, urine 6.3 ug/mL notest ab. Not Available [facility] ([facility]) [address] [facility], [place], [address], 01/30/2024 10:15:14 01/29/20 24 01/30/2024 ALBUM IN/CR EAT RATIO , RANDO M UR alb/creat ratio 7 mg/g_ creat 0-29 Michelle l: 0 - 29 Moder ately incre ased: 30 - 300 Sever jenifer incre ased: >300 Not Available [facility] ([facility]) [address] [facility], [place], [address], 01/30/2024 10:15:14 04/16/20 24 04/17/2024 TSH+F REE T4 TSH 2.480 uIU/m L 0.450- 4.500 Not Available [facility] ([facility]) [address] [facility], [place], [address], 04/17/2024 07:17:48 04/16/20 24 04/17/2024 TSH+F REE T4 T4,free(dire ct) 1.14 NG/dL 0.82-1 .77 Not Available [facility] ([facility]) [address] [place], [address], 04/17/2024 07:17:48 04/16/20 24 04/17/2024 LIPID PANEL WITH LDL/H DL RATIO cholesterol, total 202 mg/dL 100-19 9 above high normal Not Available [facility] ([facility]) [address] [place], [address], 04/17/2024 07:17:48 04/16/20 24 04/17/2024 LIPID PANEL WITH LDL/H DL RATIO triglyceride s 148 mg/dL 0-149 Not Available [facility] ([facility]) [address] [place], [address], 04/17/2024 07:17:48 04/16/20 24 04/17/2024 LIPID PANEL WITH LDL/H DL RATIO HDL cholesterol 55 mg/dL >39 Not Available [facility] ([facility]) [address] [place], [address], 04/17/2024 07:17:48 04/16/20 24 04/17/2024 LIPID PANEL WITH LDL/H DL RATIO VLDL cholesterol jose e 26 mg/dL 5-40 Not Available [facility] ([facility]) [address] [place], [address], 04/17/2024 07:17:48 04/16/20 24 04/17/2024 LIPID PANEL WITH LDL/H DL RATIO LDL chol calc ([facility]) 121 mg/dL 0-99 above high normal Not Available [facility] ([facility]) [address] [place], [address], 04/17/2024 07:17:48 04/16/20 24 04/17/2024 LIPID PANEL WITH LDL/H DL RATIO LDL/HDL ratio 2.2 ratio 0.0-3. 2 LDL/H DL Ratio Men Women 1/2 Avg.R isk 1.0 1.5 Avg.R isk 3.6 3.2 2X Avg.R isk 6.2 5.0 3X Avg.R isk 8.0 6.1 Not Available [facility] ([facility]) [address] [place], [address], 04/17/2024 07:17:48 04/16/20 24 04/17/2024 COMP. METAB OLIC PANEL (14) glucose 152 mg/dL 70-99 above high normal Not Available [facility] ([facility]) [address] [place], [address], 04/17/2024 07:17:49 04/16/20 24 04/17/2024 COMP. METAB OLIC PANEL (14) BUN 15 mg/dL 6-24 Not Available [facility] ([facility]) [address] [place], [address], 04/17/2024 07:17:49 04/16/20 24 04/17/2024 COMP. METAB OLIC PANEL (14) creatinine 0.51 mg/dL 0.57-1 .00 below low normal Not Available [facility] ([facility]) [address] [place], [address], 04/17/2024 07:17:49 04/16/20 24 04/17/2024 COMP. METAB OLIC PANEL (14) eGFR 115 mL/mi n/1.7 3 >59 Not Available [facility] ([facility]) [address] [place], [address], 04/17/2024 07:17:49 04/16/20 24 04/17/2024 COMP. METAB OLIC PANEL (14) BUN/creatini ne ratio 29 9-23 above high normal Not Available [facility] ([facility]) [address] [place], [address], 04/17/2024 07:17:49 04/16/20 24 04/17/2024 COMP. METAB OLIC PANEL (14) sodium 139 mmol/ L 134-14 4 Not Available [facility] ([facility]) [address] [place], [address], 04/17/2024 07:17:49 04/16/20 24 04/17/2024 COMP. METAB OLIC PANEL (14) potassium 4.6 mmol/ L 3.5-5. 2 Not Available [facility] ([facility]) [address] [place], [address], 04/17/2024 07:17:49 04/16/20 24 04/17/2024 COMP. METAB OLIC PANEL (14) chloride 103 mmol/ L 96-106 Not Available [facility] ([facility]) [address] [place], [address], 04/17/2024 07:17:49 04/16/20 24 04/17/2024 COMP. METAB OLIC PANEL (14) carbon dioxide, total 20 mmol/ L 20-29 Not Available [facility] ([facility]) [address] [facility], [place], [address], 04/17/2024 07:17:49 04/16/20 24 04/17/2024 COMP. METAB OLIC PANEL (14) calcium 9.6 mg/dL 8.7-10 .2 Not Available [facility] ([facility]) [address] [facility], [place], [address], 04/17/2024 07:17:49 04/16/20 24 04/17/2024 COMP. METAB OLIC PANEL (14) protein, total 6.8 g/dL 6.0-8. 5 Not Available [facility] ([facility]) [address] [facility], [place], [address], 04/17/2024 07:17:49 04/16/20 24 04/17/2024 COMP. METAB OLIC PANEL (14) albumin 4.5 g/dL 3.9-4. 9 Not Available [facility] ([facility]) [address] [place], [address], 04/17/2024 07:17:49 04/16/20 24 04/17/2024 COMP. METAB OLIC PANEL (14) globulin, total 2.3 g/dL 1.5-4. 5 Not Available [facility] ([facility]) [address] [facility], [place], [address], 04/17/2024 07:17:49 04/16/20 24 04/17/2024 COMP. METAB OLIC PANEL (14) bilirubin, total 0.3 mg/dL 0.0-1. 2 Not Available [facility] ([facility]) [address] [place], [address], 04/17/2024 07:17:49 04/16/20 24 04/17/2024 COMP. METAB OLIC PANEL (14) alkaline phosphatase 76 IU/L 44-121 Not Available [facility] ([facility]) [address], [place], [address], 04/17/2024 07:17:49 04/16/20 24 04/17/2024 COMP. METAB OLIC PANEL (14) AST (SGOT) 19 IU/L 0-40 Not Available [facility] ([facility]) [address] [facility], [place], [address], 04/17/2024 07:17:49 04/16/20 24 04/17/2024 COMP. METAB OLIC PANEL (14) ALT (SGPT) 15 IU/L 0-32 Not Available [facility] ([facility]) [address], [place], [address], 04/17/2024 07:17:49 04/16/20 24 04/17/2024 CBC WITH DIFFE RENTI AL/PL ATELE T WBC 5.7 x10e3 /uL 3.4-10 .8 Not Available [facility] ([facility]) [address] [facility], [place], [address], 04/17/2024 07:17:49 04/16/20 24 04/17/2024 CBC WITH DIFFE RENTI AL/PL ATELE T RBC 4.66 x10e6 /uL 3.77-5 .28 Not Available [facility] ([facility]) [address] [facility], [place], [address], 04/17/2024 07:17:49 04/16/20 24 04/17/2024 CBC WITH DIFFE RENTI AL/PL ATELE T hemoglobin 13.2 g/dL 11.1-1 5.9 Not Available [facility] ([facility]) [address] [place], [address], 04/17/2024 07:17:49 04/16/20 24 04/17/2024 CBC WITH DIFFE RENTI AL/PL ATELE T hematocrit 40.8 % 34.0-4 6.6 Not Available [facility] ([facility]) [address] [facility], [place], [address], 04/17/2024 07:17:49 04/16/20 24 04/17/2024 CBC WITH DIFFE RENTI AL/PL ATELE T MCV 88 fL 79-97 Not Available [facility] ([facility]) [address] [facility], [place], [address], 04/17/2024 07:17:49 04/16/20 24 04/17/2024 CBC WITH DIFFE RENTI AL/PL ATELE T MCH 28.3 pg 26.6-3 3.0 Not Available [facility] ([facility]) [address] [facility], [place], [address], 04/17/2024 07:17:49 04/16/20 24 04/17/2024 CBC WITH DIFFE RENTI AL/PL ATELE T MCHC 32.4 g/dL 31.5-3 5.7 Not Available [facility] ([facility]) [address] [facility], [place], [address], 04/17/2024 07:17:49 04/16/20 24 04/17/2024 CBC WITH DIFFE RENTI AL/PL ATELE T RDW 13.1 % 11.7-1 5.4 Not Available [facility] ([facility]) [address] [facility], [place], [address], 04/17/2024 07:17:49 04/16/20 24 04/17/2024 CBC WITH DIFFE RENTI AL/PL ATELE T platelets 231 x10e3 /uL 150-45 0 Not Available [facility] ([facility]) [address] [place], [address], 04/17/2024 07:17:49 04/16/20 24 04/17/2024 CBC WITH DIFFE RENTI AL/PL ATELE T neutrophils 49 % notest ab. Not Available [facility] ([facility]) [address] [place], [address], 04/17/2024 07:17:49 04/16/20 24 04/17/2024 CBC WITH DIFFE RENTI AL/PL ATELE T lymphs 34 % notest ab. Not Available [facility] ([facility]) [address] [facility], [place], [address], 04/17/2024 07:17:49 04/16/20 24 04/17/2024 CBC WITH DIFFE RENTI AL/PL ATELE T monocytes 9 % notest ab. Not Available [facility] ([facility]) [address] [place], [address], 04/17/2024 07:17:49 04/16/20 24 04/17/2024 CBC WITH DIFFE RENTI AL/PL ATELE T eos 7 % notest ab. Not Available [facility] ([facility]) [address] [place], [address], 04/17/2024 07:17:49 04/16/20 24 04/17/2024 CBC WITH DIFFE RENTI AL/PL ATELE T basos 1 % notest ab. Not Available [facility] ([facility]) [address] [place], [address], 04/17/2024 07:17:49 04/16/20 24 04/17/2024 CBC WITH DIFFE RENTI AL/PL ATELE T neutrophils (absolute) 2.9 x10e3 /uL 1.4-7. 0 Not Available [facility] ([facility]) [address] [facility], [place], [address], 04/17/2024 07:17:49 04/16/20 24 04/17/2024 CBC WITH DIFFE RENTI AL/PL ATELE T lymphs (absolute) 1.9 x10e3 /uL 0.7-3. 1 Not Available [facility] ([facility]) [address] [place], [address], 04/17/2024 07:17:49 04/16/20 24 04/17/2024 CBC WITH DIFFE RENTI AL/PL ATELE T monocytes(ab solute) 0.5 x10e3 /uL 0.1-0. 9 Not Available [facility] ([facility]) [address] [facility], [place], [address], 04/17/2024 07:17:49 04/16/20 24 04/17/2024 CBC WITH DIFFE RENTI AL/PL ATELE T eos (absolute) 0.4 x10e3 /uL 0.0-0. 4 Not Available [facility] ([facility]) [address] [facility], [place], [address], 04/17/2024 07:17:49 04/16/20 24 04/17/2024 CBC WITH DIFFE RENTI AL/PL ATELE T baso (absolute) 0.0 x10e3 /uL 0.0-0. 2 Not Available [facility] ([facility]) [address] [facility], [place], [address], 04/17/2024 07:17:49 04/16/20 24 04/17/2024 CBC WITH DIFFE RENTI AL/PL ATELE T immature granulocytes 0 % notest ab. Not Available [facility] ([facility]) [address] [facility], [place], [address], 04/17/2024 07:17:49 04/16/20 24 04/17/2024 CBC WITH DIFFE RENTI AL/PL ATELE T immature grans (abs) 0.0 x10e3 /uL 0.0-0. 1 Not Available [facility] ([facility]) [address] [facility], [place], [address], 04/17/2024 07:17:49 04/16/20 24 04/16/2024 HbA1c (hemo globi n A1c), blood HbA1c 7.7% Not Available In-Office Order Internal Use Only DO Not Attach Compendium DO Not Attach Compendium, Do Not Delete/merge, [id number] 04/16/2024 08:42:34 04/01/20 23 03/29/2023 CT, head, w/o contr ast No observ ation record ed. [facility] [address], [place], [address], 04/08/2023 11:18:35 07/02/20 23 07/02/2023 MAMMO , scree phil, bilat eral No observ ation record ed. [email or web address] [facility] [address], [place], [address], 07/03/2023 16:57:03 08/24/20 24 08/24/2024 XR, hip + pelvi s, unila teral , 2 or 3 view No observ ation record ed. [email or web address] [facility] [address], [place], [address], 08/25/2024 09:16:12 Result Notes None recorded. Problems Name Problem SNOMED Code Status Onset Date Resolution Date Notes Provider Name and Address Organization Details Recorded Time Diabetes mellitus 59885240 Active 2018 MILTON DEGROOT Attn: Viky akers,[address] [place], [address], [facility] 2 11:45:17 Bilateral osteoarthri tis of knees 8044318642930 07 Active 2020 MILTON DEGROOT Attn: Viky akers,[address] [place], [address], [place] [facility] 2 11:45:09 Numbness of foot 490628048 Active 2020 MILTON DEGROOT Attn: Viky akers,[address] [place], [address], [facility] - [facility] 2 11:45:21 Neuropathy 697854913 Active 2020 MILTON DEGROOT Attn: Viky akers,[address] [place], [address], [facility] 2 11:45:19 Hyperlipide jyothi 58723392 Active 2021 MILTON DEGROOT Attn: Viky akers,[address] [facility], [place], [address], [facility] 2 12:31:08 Uncontrolle d type 2 diabetes mellitus 659264454 Active 2022 MILTON DEGROOT Attn: Viky akers,[address] [facility], [place], [address], [facility] 3 09:56:57 Problem Notes None recorded. Procedures Surgical History Date Name Laterality Status Provider Name and Address Organization Details Recorded Time 1 Date of Last Mammogram completed MILTON DEGROOT Attn: Accounting,[address] [facility], [place], [address], [facility] 11/08/2021 11:13:21 Back Surgery completed Micki Calvert [place] [facility] 12/31/2018 10:30:04 Joint Replacement completed Micki Calvert [place] [facility] 12/31/2018 10:30:54 section completed Micki Calvert MA [facility] 12/31/2018 10:31:11 Imaging Results Imaging Date Name Status LastModified by Organiz ation Details LastModified Time 03/29/2023 CT, head, w/o contrast completed [facility] [address], [place], [address], 04/08/2023 11:18:35 07/02/2023 MAMMO, screening, bilateral completed [email or web address] [facility] [address], [place], [address], 07/03/2023 16:57:03 08/24/2024 XR, hip + pelvis, unilateral, 2 or 3 view completed [email or web address] [place] [address] [address] [place], [address], 08/25/2024 09:16:12 Procedure Notes None recorded. Medical Equipment None Reported. Allergies No known drug allergies Medications Name Sig Start Date Stop Date Status Note LastModified by Organization Details LastModified Time cyclobenz aprine 10 mg tablet TAKE 1 TABLET BY MOUTH EVERY 8 HOURS active Not Available Not Available No t Available amoxicill in 500 mg capsule 01/20 completed Not Available Not Available Not Available atorvasta tin 40 mg tablet TAKE 1 TABLET BY MOUTH EVERYDAY AT BEDTIME 11/08 completed Not Available Not Available Not Available prednison e 10 mg tablet 05/29 completed Not Available Not Available Not Available atorvasta tin 20 mg tablet TAKE 1 TABLET BY MOUTH EVERY DAY AT BEDTIME active Not Available Not Available No t Available atorvasta tin 10 mg tablet 01/08 completed Not Available Not Available Not Available azithromy kris 250 mg tablet TAKE 2 TABLETS BY MOUTH FOR 1 DAY THEN TAKE 1 TABLET BY MOUTH DAILY FOR 4 DAYS active Not Available Not Available No t Available ibuprofen 800 mg tablet TAKE ONE TABLET BY MOUTH TWICE DAILY WITH FOOD active Not Available Not Available No t Available ofloxacin 0.3 % eye drops 12/18 completed Not Available Not Available Not Available fluconazo le 150 mg tablet TAKE 1 TABLET BY MOUTH ONCE WEEKLY 11/02 completed Not Available Not Available Not Available benzonata te 200 mg capsule 12/18 completed Not Available Not Available Not Available hydrocodo ne 5 mg-acetam inophen 325 mg tablet 11/22 completed Not Available Not Available Not Available fluconazo le 200 mg tablet 11/22 completed Not Available Not Available Not Available metronida zole 0.75 % (37.5 mg/5 gram) vaginal gel 11/22 completed Not Available Not Available Not Available ondansetr on HCl 4 mg tablet TAKE 1 TABLET BY MOUTH THREE TIMES DAILY FOR 3 DAYS NEEDED FOR NAUSEA 01/28 completed Not Available Not Available Not Available prednison e 20 mg tablet TAKE 1 TABLET BY MOUTH DAILY FOR 5 DAYS active Not Available Not Available No t Available metronida zole 500 mg tablet 11/22 completed Not Available Not Available Not Available acetamino phen 300 mg-codein e 30 mg tablet 11/22 completed Not Available Not Available Not Available sulfameth oxazole 800 mg-trimet hoprim 160 mg tablet 10/22 completed Not Available Not Available Not Available triamcino lone acetonide 0.1 % topical cream 11/02 completed Not Available Not Available Not Available glimepiri de 2 mg tablet TAKE 2 TABLETS BY MOUTH TWICE DAILY 04/16 completed Not Available Not Available Not Available nystatin- triamcino lone 100,000 unit/gram -0.1 % topical ointment 11/02 completed Not Available Not Available Not Available amoxicill in 875 mg tablet 11/22 completed Not Available Not Available Not Available hydromorp hillary 2 mg tablet 12/31 completed Not Available Not Available Not Available Vitamin C 1,000 mg tablet Take by oral route. active Not Available Not Available No t Available methocarb sheyla 750 mg tablet TAKE 1 TABLET BY MOUTH THREE TIMES DAILY 12/18 completed PRN Not Available Not Available Not Available dexametha sone 1 mg tablet TAKE 1 TABLET NEEDED BY MOUTH AT BEDTIME FOR 1 DAY. 11/08 completed Not Available Not Available Not Available baclofen 10 mg tablet TAKE 1 TABLET BY MOUTH THREE TIMES DAILY FOR 14 DAYS NEEDED. 05/29 completed Not Available Not Available Not Available paroxetin e 20 mg tablet 12/31 completed Not Available Not Available Not Available oseltamiv ir 75 mg capsule TAKE 1 CAPSULE BY MOUTH EVERY 12 HOURS FOR 5 DAYS 12/18 completed Not Available Not Available Not Available metformin 1,000 mg tablet TAKE 1 TABLET BY MOUTH TWICE DAILY WITH MEALS active Not Available Not Available No t Available nystatin 100,000 unit/gram topical cream APPLY TO THE AFFECTED AREA(S) BY TOPICAL ROUTE 2 TIMES PER DAY 11/08 completed Not Available Not Available Not Available clotrimaz ole-betam ethasone 1 %-0.05 % topical cream 11/22 completed Not Available Not Available Not Available gabapenti n 300 mg capsule 1 cap po at bedtime for 7 days ; 1 cap twice daily for 7 days ; 1 cap three times daily for 7 days ; 1 cap am , 1 cap at noon and 2 caps at bedtime for 7days ; 1 cap in am, 2 caps at noon , 2 caps at bedtime for 7 days , 2 caps three times daily and maintain .. 12/06 completed Not Available Not Available Not Available diclofena c sodium 75 mg tablet,de layed release TAKE 1 TABLET BY MOUTH TWICE A DAY WITH MEALS 11/08 completed Not Available Not Available Not Available monteluka st 10 mg tablet TAKE 1 TABLET BY MOUTH EVERY DAY IN THE MORNING 05/29 completed Not Available Not Available Not Available methylpre dnisolone 4 mg tablets in a dose pack FOLLOW PACKAGE DIRECTIO NS active Not Available Not Available No t Available pioglitaz one 30 mg tablet Take 1 tablet(s ) every day by oral route. 11/08 completed Not Available Not Available Not Available cefdinir 300 mg capsule TAKE 1 CAPSULE BY MOUTH EVERY 12 HOURS WITH MEALS FOR 7 DAYS 10/22 completed Not Available Not Available Not Available B Complete tablet Take by oral route. 11/08 completed Not Available Not Available Not Available naproxen 500 mg tablet TAKE 1 TABLET BY MOUTH TWICE DAILY WITH FOOD 05/29 completed Not Available Not Available Not Available amoxicill in 875 mg-potass ium clavulana te 125 mg tablet TAKE 1 TABLET BY MOUTH TWICE DAILY FOR 10 DAYS active Not Available Not Available No t Available clindamyc in 1 % lotion 05/13 completed Not Available Not Available Not Available Novolog Mix 70-30 FlexPen U-100 Insulin 100 unit/mL subcutane ous pen TAKE 40 UNITS IN THE MORNING AND 60 UNITS WITH EVEN MEAL 11/08 completed Not Available Not Available Not Available moxifloxa kris 0.5 % eye drops 12/18 completed Not Available Not Available Not Available rosuvasta tin 40 mg tablet TAKE 1 TABLET BY MOUTH EVERYDAY AT BEDTIME 05/29 completed Not Available Not Available Not Available nitrofura ntoin monohydra te/macroc rystals 100 mg capsule 12/31 completed Not Available Not Available Not Available fenofibra te 160 mg tablet TAKE 1 TABLET BY MOUTH EVERY DAY 05/29 completed Not Available Not Available Not Available pregabali n 75 mg capsule TAKE 1 CAPSULE BY MOUTH TWICE DAILY 05/29 completed Not Available Not Available Not Available magnesium 11/08 completed theronat e 2000 mg 2x a day Not Available Not Available Not Available Vitamin D3 active 5000 Not Available Not Available Not Available BD Ultra-Fin e Short Pen Needle 31 gauge x 5/16 active Not Available Not Available Not Available Januvia 100 mg tablet 11/02/ 2021 03/02 /2022 completed Not Available Not Available Not Available Jardiance 25 mg tablet TAKE 1 TABLET BY MOUTH EVERY DAY 11/08 completed Not Available Not Available Not Available Trulicity 1.5 mg/0.5 mL subcutane ous pen injector ADMINIST ER 1.5 MG UNDER THE SKIN EVERY WEEK DIRECTED FOR DIABETES active Not Available Not Available No t Available Trulicity 0.75 mg/0.5 mL subcutane ous pen injector ADMINIST ER 0.75 MG UNDER THE SKIN EVERY WEEK DIRECTED 07/04 completed Not Available Not Available Not Available Tresiba FlexTouch U-200 insulin 200 unit/mL (3 mL) subcutane ous pen ADMINIST ER 40 UNITS UNDER THE SKIN EVERY DAY DIRECTED FOR DIABETES active Not Available Not Available No t Available Steglatro 15 mg tablet Take 1 tablet every day by oral route. 11/22 completed Not Available Not Available Not Available Dexcom G6 Transmitt er device USE TO MONITOR BLOOD SUGAR. REPLACE EVERY 3 MONTHS active Not Available Not Available No t Available Flucelvax Quad (PF) 60 mcg (15 mcg x 4)/0.5 mL IM syringe 12/31 completed Not Available Not Available Not Available BD Columba 2nd Gen Pen Needle 32 gauge x active Not Available Not Available Not Available Fluzone Quad (PF) 60 mcg (15 mcg x 4)/0.5 mL IM syringe 11/22 completed Not Available Not Available Not Available Trulicity 3 mg/0.5 mL subcutane ous pen injector Inject by subcutan eous route for 28 days. active Not Available Not Available No t Available Ozempic 1 mg/dose (4 mg/3 mL) subcutane ous pen injector INJECT 1MG UNDER THE SKIN EVERY WEEK 05/29 completed Not Available Not Available Not Available Dexcom G7 [employer] USE DIRECTED 2023 active Not Available Not Available Not Avai lable Dexcom G7 Sensor device CHANGE EVERY 10 DAYS active Not Available Not Available No t Available Vitals Date Recorded Body height Body mass index (BMI) Body weight Oxygen saturation Oxygen saturation in Arterial blood by Pulse oximetry Heart rate Respiratory rate Body temperature Systolic blood pressure Diastolic blood pressure Provider Name and Address Organization Details Last Updated DateTime 3 172.72 cm 44.6 kg/m2 186138. 36 g 98 % 98 % 119 /min 16 /min 98 [degF] 118 mm[Hg] 60 mm[Hg] Smita Richardson CMA [facility] 3 16:09:42 Date Recorded Body height Body mass index (BMI) Body weight Oxygen saturation Oxygen saturation in Arterial blood by Pulse oximetry Heart rate Respiratory rate Systolic blood pressure Diastolic blood pressure Provider Name and Address Organization Details Last Updated DateTime 3 172.72 cm 43.2 kg/m2 440047. 93 g 100 % 100 % 98 /min 16 /min 118 mm[Hg] 76 mm[Hg] Irma Vega MA [facility] 3 09:24:41 Date Recorded Body height Body mass index (BMI) Body weight Oxygen saturation Oxygen saturation in Arterial blood by Pulse oximetry Heart rate Respiratory rate Systolic blood pressure Diastolic blood pressure Provider Name and Address Organization Details Last Updated DateTime 4 172.72 cm 44.9 kg/m2 071381. 75 g 97 % 97 % 98 /min 16 /min 129 mm[Hg] 83 mm[Hg] Irma Vega MA [facility] 4 16:38:20 Date Recorded Body height Body mass index (BMI) Body weight Oxygen saturation Oxygen saturation in Arterial blood by Pulse oximetry Heart rate Respiratory rate Systolic blood pressure Diastolic blood pressure Provider Name and Address Organization Details Last Updated DateTime 4 172.72 cm 44.2 kg/m2 720742. 38 g 99 % 99 % 82 /min 16 /min 153 mm[Hg] 90 mm[Hg] Irma Vega MA [facility] 4 08:51:28 Date Recorded Systolic blood pressure Diastolic blood pressure Provider Name and Address Organization Details Last Updated DateTime 01/29/2024 110 mm[Hg] 70 mm[Hg] MILTON DEGROOT Attn: Accounting,[address] [place], [address], [facility] 01/29/2024 09:22:34 Date Recorded Body height Body mass index (BMI) Body weight Oxygen saturation Oxygen saturation in Arterial blood by Pulse oximetry Heart rate Respiratory rate Systolic blood pressure Diastolic blood pressure Provider Name and Address Organization Details Last Updated DateTime 4 172.72 cm 44.6 kg/m2 530701. 56 g 97 % 97 % 82 /min 16 /min 120 mm[Hg] 80 mm[Hg] Irma Vega MA [facility] 4 08:40:23 Social History Question Answer Notes LastModified by Organizat ion Details LastModified Time Tobacco Smoking Status Former Smoker Quit 2014 Zeynep Zarate MA [facility], [facility] 11/23/2019 10:31:09 Do You Have An Advance Directive? No Information not available 11/02/2020 What Is Your Level Of Alcohol Consumption? None Information not available 11/23/2019 Are You Blind Or Do You Have Difficulty Seeing? No Information not available 11/02/2020 What Is Your Level Of Caffeine Consumption? Occasional 1 Cup Of Coffee Information not available 12/06/2021 How Much Tobacco Do You Chew? None Information not available 11/23/2019 In The 14 Days Before Symptom Onset, Have You Had Close Contact With A Laboratory-confir med COVID-19 While That Case Was Ill? No Information not available 12/30/2020 In The 14 Days Before Symptom Onset, Have You Had Close Contact With A Person Who Is Under Investigation For COVID-19 While That Person Was Ill? No Information not available 12/30/2020 Have You Been To An Area Known To Be High Risk For COVID-19? No Information not available 11/02/2020 Are You Currently Employed? Yes Information not available 12/02/2020 Are You Deaf Or Do You Have Serious Difficulty Hearing? No Information not available 11/02/2020 What Type Of Diet Are You Following? REGULAR Information not available 11/23/2019 Which Illicit Or Recreational Drugs Have You Used? None Information not available 11/23/2019 Do You Or Have You Ever Used E-cigarettes Or Vape? Never Used Electronic Cigarettes Information not available 11/23/2019 What Is Your Occupation? [employer]. Information not available 12/06/2021 Are There Any Guns Present In Your Home? Yes Information not available 12/06/2021 Do You Have A High School Diploma Or Higher Education? Yes Information not available 11/08/2021 Do You Sometimes Have To Miss Your Medical Appointments Due To Difficult Getting Transportation? No Information not available 11/08/2021 Do You Feel Unfairly Treated Due To Things Such As Race, Age, Gender, Disability Or Some Other Reason? No Information not available 11/08/2021 Do You Feel Physically And Emotionally Safe While Living At Home? Yes Information not available 11/08/2021 Do You Feel Physically And Emotionally Safe In Your Neighborhood Or Other Public Places? Yes Information not available 11/08/2021 What Was The Date Of Your Most Recent Tobacco Screening? 04/16/2024 [email or web address] Information not available 04/16/2024 How Many Children Do You Have? 1 Information not available 12/06/2021 Do You Use Protection During Sex? No Information not available 12/06/2021 What Is Your Relationship Status? Information not available 12/30/2020 Are You Sexually Active? Yes Information not available 12/06/2021 Do You Have Smoke And Carbon Monoxide Detectors In Your Home? Yes Information not available 11/08/2020 At What Age Did You Start Smoking Tobacco? 18 Information not available 11/23/2019 Are You Passively Exposed To Smoke? No Information no t available 11/02/2020 Do You Or Have You Ever Used Smokeless Tobacco? Never Used Smokeless Tobacco Information not available 11/23/2019 How Much Tobacco Do You Smoke? 0.5 PPD Information not available 12/31/2018 General Stress Level Low Information not available 11/23/2019 Do You Feel Stressed (tense, Restless, Nervous, Or Anxious, Or Unable To Sleep At Night)? [id number] Information not available 12/06/2021 Do You Use Any Illicit Or Recreational Drugs? No [email or web address] Information not available 06/21/2021 Do You Use Sunscreen Routinely? Yes Information not available 12/06/2021 On What Date Was Tobacco Cessation Counseling Provided? 04/16/2024 [email or web address] Information not available 04/16/2024 How Many Years Have You Smoked Tobacco? 20 Information not available 12/31/2018 Do You Or Have You Ever Used Any Other Forms Of Tobacco Or Nicotine? No Information not available 11/02/2020 Sex: Female Functional Status Question Answer Note LastModified by Organization D etails LastModified Time Are you able to care for yourself? Yes Information n ot available 11/02/2020 Mental Status None recorded. Family History Relationship Description Onset Age of this Age Resolved Age Notes LastModified by Organization Details LastModified Time Father Malignant tumor of colon [email or web address] Not available 12/09 10:28:15 Mother Depressive disorder [email or web address] Not available 12/09 10:28:24 Mother Hypercholest erolemia [email or web address] Not available 12/09 10:28:52 Unspecified Relation Diabetes mellitus [email or web address] Not available 12/09 10:28:36 Medical History Condition Response Coronary Artery Disease N Other N Atrial Fibrillation N High Blood Pressure N Thyroid Problems N Kidney or Bladder Problems N GI Problems N Depression N COPD N Blood Clots N Eating Disorder N Skin Problems N Anemia N Heart Attack ([place]) N Anxiety Disorder N Diabetes Y Muscle, Joint, or Bone Problems N Seizures/Epilepsy N Acid Reflux (GERD) N Cancer N Stroke N Asthma N Allergies N ADHD N Substance Abuse N High Cholesterol Y Hepatitis N Liver Disease N Schizophrenia N Headaches N Heart Failure N Osteoporosis N Gynecological History Statement/Question Response Date of Last Mammogram 02/07/2021 Flow Moderate Date of LMP 05/26/2023 Duration of Flow (days) 4 Age at Menarche 16 Current Control Method None Age at First Child 23 If Post Menopausal, Age at Menopause Frequency of Cycle (Q days) 28 Menses Monthly Y Date of Last Pap Smear LMP Approximate Obstetrics History GPAL:G 3 P 1 0 2 1 Type Value Multiple Births 0 Full Term 1 Induced 2 Spontaneous 0 Premature 0 Living 1 Ectopics 0 Total 3 Immunizations Vaccine Type Date Status Note Provider Nam e and Address Organization Details Recorded Time influenza, intradermal, quadrivalent, preservative free 9 completed [place] Har[place], [place] [facility] 07/29/2019 16:44:38 Influenza, split virus, quadrivalent, preservative 0 completed Zeynep Zarate [place], [place] [facility] 11/02/2020 16:04:53 COVID-19, mRNA, LNP-S, PF, 30 mcg/0.3 mL dose 1 completed Erica Jasso [place] [facility] 02/01/2021 09:00:36 COVID-19, mRNA, LNP-S, PF, 30 mcg/0.3 mL dose 1 completed Erica Jasso [place] [facility] 02/01/2021 09:02:51 Pneumococcal conjugate PCV20, polysaccharide [id number] conjugate, adjuvant, PF 4 completed MILTON DEGROOT Attn: Accounting,[address] [place], [address], [place] [facility] 01/29/2024 21:39:50 Past Encounters Encounter ID Performer Location Encounter Start Date Encounter Closed Date Diagnosis/Indication Diagnosis SNOMED-CT Code Diagnosis ICD10 Code Diagnosis Note [id number] Opal Parmar MD [facility] [address] [place] [address] 12/31/2018 10:09:59 01/05/2019 10:22:20 Insulin treated type 2 diabetes mellitus 533068489 Z79.4 Hyperlipidemia 02930646 E78.5 Adult heal th examination 549152598 Z00.00 Standardiz ed adult depression screening tool completed [id number] 93832 Z13.89 will monitor and consider adding medication if persistent . [id number] Opal Parmar MD [facility] [address] [place] [address] 03/19/2019 16:24:12 03/23/2019 10:05:59 Candidiasis of vagina 08178451 B37.3 Pain of ri ght ankle joint 5439225306 5159309 M25.571 sees Jean Narcisa in [place]--podi atrist Neuropathy due to diabetes mellitus 199232712 E11.40 blood sugar was 8.9 2 months ago Screening mammography 24 757972 Z12.31 [id number] Opal Parmar MD [facility] [address] [place] [address] 07/13/2019 10:03:21 07/20/2019 13:57:26 Type 2 diabetes mellitus 50554986 E11.65 running in mid 100s. Candidiasis of vagina 72 438275 B37.3 Depression screening 171 196578 Z13.31 patient does not appear to be significan tly depressed. [id number] Opal Parmar MD [facility] [address] [address] 11/23/2019 10:07:10 12/01/2019 11:21:57 Type 2 diabetes mellitus 21147658 E11.65 running in mid 100s. Discussed low fat, low carb diet, and encouraged exercise. Screening mammography 24 955249 Z12.31 Depression screening 171 731205 Z13.31 patient does not appear to be significan tly depressed. [id number] Opal Parmar MD [facility] [address] [place] [address] 02/22/2020 09:38:58 03/01/2020 06:38:53 Type 2 diabetes mellitus 70821000 E11.65 losing weight with eating clean. Blood sugars are running lower discussed low fat, low carb diet, and encouraged exercise. You need to cut back on fried foods, cream sauce, cheese sauce, large servings of meat, sugary sodas, sweets, and starchy foods like bread, rice, potatoes, noodles, and tortillas. Regular exercise will also help improve your blood sugars and your lipids. [id number] Opal Parmar MD [facility] [address] [place] [address] 05/13/2020 11:59:51 05/17/2020 08:09:30 Pain of left elbow joint [id number] 0095094 M25.340 [id number] Opal Parmar MD [facility] [address] [place] [address] 11/02/2020 08:07:56 11/04/2020 12:36:25 Type 2 diabetes mellitus 06560135 E11.65 l Morbid obesity 451221450 E66.01 patient will contact her insurance plan and see what steps we need to take. She had a BMI of 44.9, so she should qualify for bariatric surgery; she has arthritis in her knees and diabetes and comorbid conditions . [id number] Opal Pramar MD [facility] [address] [place] [address] 11/08/2020 08:12:27 11/18/2020 11:24:59 Pain in left knee 6596570512 67709 M25.562 Patient's symptoms are getting worse and she is at risk for falls. [id number] Zeynep Zarate MA [facility] [address] [place] [address] 11/22/2020 09:17:41 11/26/2020 21:12:22 [id number] Opal Parmar MD [facility] [address] [place] [address] 12/02/2020 08:07:46 12/05/2020 22:37:02 Bilateral knee pain 2831513958 8042599 M25.562 M25.561 Patient will bring in papers for [facility] [id number] Opal Parmar MD [facility] [address] [place] [address] 12/30/2020 10:05:24 01/03/2021 13:37:30 Type 2 diabetes mellitus 49902974 E11.65 normal diabetic eye exam. Dental exam normal aside from bleeding in the gums. 114 FBS today. 150 2 hours after eating. Screening for malignant neoplasm of colon 906308399 Z12.11 father had colorectal cancer. Screening mammography 24 149329 Z12.31 Pain in right knee 30272 75299 89235 M25.561 L knee is getting better. Still attending physical therapy and increasing the intensity of work.Nodul e on right lateral knee. ability to walk is improving slowly. still has problems with standing at one place to do a task, but is improving. [id number] Opal Parmar MD [facility] [address] [place] [address] 01/20/2021 12:03:26 01/20/2021 15:42:13 Osteoarthritis of knee 173758576 M17.9 will continue physical therapy and patient will follow up with orthopedic surgeon as scheduled. [id number] Clinton Ceja MD [facility] [address] [place] [address] 04/03/2021 14:15:44 04/04/2021 06:52:48 Type 2 diabetes mellitus 32417251 E11.65 BS = 126... no change... Osteoarthr itis of knee 203655426 M17.9 seeing ortho... will return to work once evaluation is done and possible injection. .. [id number] Clinton Ceja MD [facility] [address] [place] [address] 05/01/2021 09:46:50 05/02/2021 10:47:26 Type 2 diabetes mellitus 24147189 E11.65 follow up q 3 months... review A1C... Osteoarthr itis of knee 852901375 M17.9 seeing ortho... will return to work once evaluation is done... recently was injected.. . fill out appropriat e paperwork. . Obesity 369946589 E66.9 advise diet/exerc ise once knee treatment complete.. 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 Diabetes mellitus 668514 09 E11.9 has Dexcom 6, fasting BS 95-120work ing on diet changeson metformin, glimepirid e, ozempic, novolog, tresibalas t a1c 9.4follows with endocrine Numbness a nd tingling sensation of skin 7362290758 02 R20.2 L toes (x3 months) and R hip/leg since R hip replacemen t in 2018consta ntDM foot exam per endocrine normalpt reports she gets pedicures and can feel everythin g no relief with gabapentin will check for vitamin deficienci es todaypt takes OTC Vit D and Vit B12 Pruritus of vagina 70882 003 L29.3 1-2 days before periodoccu rred before trying jardiancei tching after she urinates and showerstri ed diflucan w/o reliefadvi sed pt to make nurse visit when symptoms occur and will check for BV- aptima swab [id number] MILTON DEGROOT [facility] [address] [place] [address] 11/27/2021 13:42:45 11/28/2021 07:14:47 Spasm of back muscles 951641192 M62.830 1 wk agoh/o back spasm episodesri ght side of back to under R breastwent to UC, given naproxen and flexeril w/ relief of painPEx- nlencourag ed heating pad and stretching after workaltern ate movements and twisting at work Depression screening 171 737678 Z13.31 11/27/21:PH Q 1 11/08/21:PHQ 6seasonalr etired for 2 months, 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 Diabetes mellitus 769564 09 E11.9 11/27/21:a1 c 6.6concern ed that she has not lost weight w/ ozempic, gained 4lbs since last visithas appt tomorrow with endocrine, sent request of records on 11/09/21 11/08/21:has Dexcom 6, fasting BS 95-120work ing on diet changeson metformin, glimepirid e, ozempic, novolog, tresibalas t a1c 9.4follows with endocrine [id number] MILTON DEGROOT [facility] [address] [place] [address] 12/06/2021 10:44:37 12/07/2021 09:35:54 Screening for malignant neoplasm of breast 524763497 Z12.39 last mammo 02/2021 Screening for malignant neoplasm of cervix 675067076 Z12.4 intermitte nt vaginal itching before period- will screen for BV and candidaPEx - nl, sample taken for pap smear [id number] MILTON DEGROOT [facility] [address] [place] [address] 12/14/2021 11:30:57 12/15/2021 08:12:57 Screening for malignant neoplasm of cervix 388988011 Z12.4 12/14/21: repeat pap, issue with labelnu swab negative for BV/Tonja /trich/chl amydia/ginette orrhea 12/06/21:in termittent vaginal itching before period- will screen for BV and candidaPEx - nl, sample taken for pap smear [id number] MILTON DEGROOT [facility] [address] [place] [address] 05/16/2022 10:09:17 05/17/2022 09:09:27 Viral syndrome 570250351 B34.9 rapid COVID 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 05/21/22 - Drink lots of fluids, water, gatorade. - Run a cool-mist humidifier in your room at night. - Get extra rest and do not over-exert yourself. - Do not mix multiple medication s with similar ingredient s (for instance Theraflu Non-drowsy and Tylenol Sinus). Doubling up on acetaminop hen and/or decongesta nts such as pseudephed rine can be dangerous. Acute otitis media 41773 03 H65.02 put on augmentin 2 days ago, no reliefno feversPEx- L TM is erythemato us and bulgingswi tch to omnicef x 7 days [id number] MILTON DEGROOT [facility] [address] [facility] [place] [address] 06/25/2022 12:30:14 06/26/2022 11:32:40 Paronychia of right thumb 8878967108 6061605 L03.011 x2 wksR thumb nail split open, developed pus filled blister and swelling around nail bedwent to UC 1 wk ago, started on bactrim, mild improvemen tc/o increased pain to R thumb joint, feels heavy and difficulty grasping objectsusi ng ibuprofen/ aleve, epsom salt baths w/o reliefno fevers/chi lls/swelli ngPEx- 0.3 mm circular flesh colored tissue to base of R thumb nail, mild erythema surroundin g base of R thumb nail, mild TTP, no streaking, able to perform thumb opposition to all 4 fingerstri al augmentin x7 days for paronychia f/u with any new or worsening sxPatient was advised to go to the ED for worsening signs or symptoms including chest pain, SOB, fever, or unable to keep down food or liquids. [id number] MILTON DEGROOT [facility] [address] [place] [address] 10/22/2022 15:54:45 10/22/2022 16:38:52 Diabetes mellitus 64774542 E11.9 10/22/22:fo llows with endocrinea 1c 9.8 11/27/21:a1 c 6.6concern ed that she has not lost weight w/ ozempic, gained 4lbs since last visithas appt tomorrow with endocrine, sent request of records on 11/09/21 11/08/21:has Dexcom 6, fasting BS 95-120work ing on diet changeson metformin, glimepirid e, ozempic, novolog, tresibalas t a1c 9.4follows with endocrine Acute thor acic back pain 891818292 M54.6 h/o back problems for years wor sening x3 wksthoraci c R sided, mid back, tightness/ spasmsPEx- tachycardi a. unable to perform FROM lumbar /thoracic spine due to pain, TTP R sided thoracic paraspinal musclesalt tylenol and ibuprofen every 4-6 hrstrial flexerilc/ w stretching as toleratedc /w lyricaif no relief with 5 days, will give short course of tramadol Chronic sinusitis 217738 00 J32.9 c/o nasal congestion , cough, post nasal drainage x10 daystaking OTC sinus relief w/o improvemen tstates to have history of chronic sinus issuestria l augmentin for 7 daystrial singulairr efer to ENT Morbid obesity 727322852 E66.01 discussed increasing exercise and healthier food options, high protein, low fat diet [id number] Smita Richardson, [facility] [address] [place] [address] 05/29/2023 09:21:27 05/29/2023 10:13:17 Diabetes mellitus 82162122 E11.9 Screening for malignant neoplasm of breast 524279524 Z12.39 last mammo 02/2021 Screening for malignant neoplasm of colon 298525443 Z12.11 dad with colon cancer at age 68has not had colonoscop y Depression screening 171 257515 Z13.31 05/29/23:PH Q 1 11/27/21:PH Q 1 11/08/21:PHQ 6seasonalr etired for 2 months, 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 Morbid obesity 170043276 E66.01 discussed increasing exercise and healthier food options, high protein, low fat dietdue for routine labs Hypercalcemia 88944195 E 83.52 per endocrine rec'd to check PTH due to hypercalce jyothi Uncontroll ed type 2 diabetes mellitus 119542999 E11.65 05/29/23:wa s following with endocrine, is now [id number] today 7.7tresiba 30 units, metformin 1999, glimepirid e 4 mgneeds refill of Dexcom G6 transmitte r, 90 day script, 3 in a [facility], advised of Joaquina for DM eye exam- encouraged pt to make apptf/u in 1 mo 10/22/22:fo llows with endocrinea 1c 9.8 11/27/21:a1 c 6.6concern ed that she has not lost weight w/ ozempic, gained 4lbs since last visithas appt tomorrow with endocrine, sent request of records on 11/09/21 11/08/21:has Dexcom 6, fasting BS 95-120work ing on diet changeson metformin, glimepirid e, ozempic, novolog, tresibalas t a1c 9.4follows with endocrine [id number] MILTON DEGROOT [facility] [address] [facility] [place] [address] 12/19/2023 16:34:49 12/19/2023 17:03:14 Uncontrolled type 2 diabetes mellitus 589980194 E11.65 12/19/23: a1c today 8.9last a1c 7.7fasting BS 200sincrea se trulicity to 3 mg, c/w metformin 2000rec'd tresiba U200 30 units at bedtime if BS >200, record fasting BS numbers and send to portalstop glimepirid e, yeast infections with jardiancef /u in 1 mo Statin: ator 20 WOODY/ARB: not indicated Foot Exam: Microalbum in: Pneumovax 23: DM eye exam: Pt was counseled on low carbohydra te diet to better manage diabetes. We went discussed pt's diet at length and I made specific dietary recommenda tions. I also encouraged regular exercise of 30-60 minutes most days of the week. Pt was encouraged to get yearly diabetic eye exams as well. 05/29/23:wa s following with endocrine, is now [id number] today 7.7tresiba 30 units, metformin 2000, glimepirid e 4 mgneeds refill of Dexcom G6 transmitte r, 90 day script, 3 in a [facility], advised of Joaquina for DM eye exam- encouraged pt to make apptf/u in 1 mo 10/22/22:fo joce with endocrinea 1c 9.8 11/27/21:a1 c 6.6concern ed that she has not lost weight w/ ozempic, gained 4lbs since last visithas appt tomorrow with endocrine, sent request of records on 11/09/21 11/08/21:has Dexcom 6, fasting BS 95-120work ing on diet changeson metformin, glimepirid e, ozempic, novolog, tresibalas t a1c 9.4follows with endocrine Depression screening 171 989748 Z13.31 12/19/23: PHQ 6 05/29/23:PH Q 1 11/27/21:PH Q 1 11/08/21:PHQ 6seasonalstefanie etired for 2 months, 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 Morbid obesity 620209407 E66.01 discussed increasing exercise and healthier food options, high protein, low fat dietwill complete labs at f/u visit [id number] MILTON DEGROOT [facility] [address] [place] [address] 01/29/2024 08:48:14 01/29/2024 09:23:26 Uncontrolled type 2 diabetes mellitus 988572612 E11.65 01/29/24: fasting BS 120s-150sw illing to try 3 mg dose of trulicityp revnar 20 given todayDF exam nlmicroalb umin pendingf/u in 2 mo for a1c 12/31/23: decrease trulicity to 1.5 mg due to nausea and vomiting 12/19/23: a1c today 8.9last a1c 7.7fasting BS 200sincrea se trulicity to 3 mg, c/w metformin 2000rec'd tresiba U200 30 units at bedtime if BS >200, record fasting BS numbers and send to portalstop glimepirid e, yeast infections with jardiancef /u in 1 mo Statin: ator 20ACE/ARB: not indicatedF oot Exam:Micro albumin:Pn eumovax 23: given todayDM eye exam: completed by Dr. Robert in [place] t was counseled on low carbohydra te diet to better manage diabetes. We went discussed pt's diet at length and I made specific dietary recommenda tions. I also encouraged regular exercise of 30-60 minutes most days of the week. Pt was encouraged to get yearly diabetic eye exams as well. 05/29/23:wa s following with endocrine, is now [id number] today 7.7tresiba 30 units, metformin 2000, glimepirid e 4 mgneeds refill of Dexcom G6 transmitte r, 90 day script, 3 in a [facility] trulicity, advised of ADRkelly for DM eye exam- encouraged pt to make apptf/u in 1 mo 10/22/22:fo llows with endocrinea 1c 9.8 11/27/21:a1 c 6.6concern ed that she has not lost weight w/ ozempic, gained 4lbs since last visithas appt tomorrow with endocrine, sent request of records on 11/09/21 11/08/21:has Dexcom 6, fasting BS 95-120work ing on diet changeson metformin, glimepirid e, ozempic, novolog, tresibalas t a1c 9.4follows with endocrine Lateral ep icondylitis of right humerus [id number] 75452 M77.11 x3 monthsdiff iculty lifting objects, wakes up with pain in the middle of the nightnumbn ess to R thumb and inside of her elbow, feels stiff has tried NSAIDs, compressio n band, salonpas w/o reliefno trauma or injuryPEx- FROM R elbow joint, moderately TTP right lateral epicondyli tisrefer to PT Screening for malignant neoplasm of colon 914226598 Z12.11 dad with colon cancer at age 68has not had colonoscop y Depression screening 171 957356 Z13.31 01/29/24: PHQ 0 12/19/23: PHQ 6 05/29/23:PH Q 1 11/27/21:PH Q 1 11/08/21:PHQ 6seasonalr etired for 2 months, 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 [id number] MILTON DEGROOT [facility] [address] [place] [address] 04/16/2024 08:36:41 04/16/2024 09:11:59 Uncontrolled type 2 diabetes mellitus 412835321 E11.65 04/16/24: a1c today 7.7last a1c 8.9microal bumin nlwants G6, G7 sensor keeps popping offfasting BS 140s-170s4 0-60 units of tresiba nightly, increase trulicity to 3 mg, c/w metformin 1999had DM eye exam this year, requested pt contact eye dr for recordsf/u in 3 mo 01/29/24: fasting BS 120s-150sw illing to try 3 mg dose of trulicityp revnar 20 given todayDF exam nlmicroalb umin pendingf/u in 2 mo for a1c 12/31/23: decrease trulicity to 1.5 mg due to nausea and vomiting 12/19/23: a1c today 8.9last a1c 7.7fasting BS 200sincrea se trulicity to 3 mg, c/w metformin 2000rec'd tresiba U200 30 units at bedtime if BS >200, record fasting BS numbers and send to portalstop glimepirid e, yeast infections with jardiancef /u in 1 mo Statin: ator 20ACE/ARB: not indicatedF oot Exam:Micro albumin:Pn eumovax 23: given todayDM eye exam: completed by Dr. Robert in [place] 4Pt was counseled on low carbohydra te diet to better manage diabetes. We went discussed pt's diet at length and I made specific dietary recommenda tions. I also encouraged regular exercise of 30-60 minutes most days of the week. Pt was encouraged to get yearly diabetic eye exams as well. 05/29/23:silvia s following with endocrine, is now [id number] today 7.7tresiba 30 units, metformin 2000, glimepirid e 4 mgneeds refill of Dexcom G6 transmitte r, 90 day script[facility] of Joaquina for DM eye exam- encouraged pt to make apptf/u in 1 mo 10/22/22:keyonna hobson with endocrinea 1c 9.8 11/27/21:a1 c 6.6concern ed that she has not lost weight w/ ozempic, gained 4lbs since last visithas appt tomorrow with endocrine, sent request of records on 11/09/21 11/08/21:has Dexcom 6, fasting BS 95-120work ing on diet changeson metformin, glimepirid e, ozempic, novolog, tresibalas t a1c 9.4follows with endocrine Screening for malignant neoplasm of breast 582767579 Z12.39 last mammo 06/2023 Screening for malignant neoplasm of colon 962690819 Z12.11 colonoscop y tomorrow Depression screening 171 940484 Z13.31 04/16/24: PHQ 0 01/29/24: PHQ 0 12/19/23: PHQ 6 9/20/23:PH Q 1 11/27/21:PH Q 1 11/08/21:PHQ 6seasonalr etired for 2 months, 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 Pain in ri ght lower limb 263801536 M79.604 R thigh pain x3 mo, intermitte ntno trauma or injurystat es she is very active at daycarec/o episode of pain with getting out of her carPEx- nlrequesti ng refill ibuprofen 800f/u if sx worsen or do not improve Morbid obesity 862419979 E66.01 discussed increasing exercise and healthier food options, high protein, low fat dietdue for labsBMI 44.6 Health Concerns Section Related Observation LastModified by Organization Detai ls LastModified Time None Recorded Concern Status LastModified by Organization Details LastModified Time None Recorded Advance Directives Directive N: Payers Encounter Date Sequence Insurance Name Policy Number Policy Salgado Covered Member ID Salgado Member ID Guarantor Name 10/22/2022 1 [place] [id number] Jerome Jennings [id number] Trupti Jennings 05/29/2023 1 [place] [id number] Jerome Jennings [id number] Trupti Jennings 12/19/2023 1 [place] [id number] Jerome Jennings [id number] Trupti Jennings 01/29/2024 1 [place] [id number] Jerome Jennings [id number] Trupti Jennings 04/16/2024 1 [place] [id number] Jerome Jennings [id number] Trupti Jennings Notes Date Note Type Note Provider Name and Address Organization Details Recorded Time 10/22/2022 text/html Pt presents with R sided mid back pain x3 wks. Reports h/o back issues for years. No trauma or injury. Located on the upper right side of her back. Describes as waves of spasms, that wraps around to the front of her rib cage. Pain is worse with bending forward, twisting, and turning. She has been taking ibuprofen, using heating pad and ice w/o relief. She works as a pre-schoolmiddle school tutor. MILTON DEGROOT Attn: Accounting[address] [place], [address], [facility] 10/23/2022 10:38:09 05/29/2023 text/html Pt presents for annual exam. Reports that her detective bureau chief is leaving the practice. She has been trying low carb diet and started walking with her . Fasting BS between 130-140s. Smita Richardson, [employer] null, [place] - [facility] 05/29/2023 10:12:55 12/19/2023 text/html Pt presents for T2DM f/u. Reports that her last a1c was 7 months ago. She has had difficulty lowering her fasting BS less than 200s. She gives herself sliding scale of [place] insulin dose. C/o struggling to lose weight and never know what diet will work for me. MILTON DEGROOT Attn: Accounting, [address] , [place], [address], [facility] 12/20/2023 15:20:44 01/29/2024 text/html Pt presents for T2DM f/u. Reports that fasting BS have been between 120s and 150s. She has been tolerating 1.5 mg of trulicity well and would like to increase dose. MILTON DEGROOT Attn: Accounting, [address] , [place], [address], [facility] 01/29/2024 21:45:30 04/16/2024 text/html Patient is here for DM f/u. Currently taking 40-60 units of tresiba nightly and metformin. Trulicity has been hard to get, but patient would like to refill the 3mg. Fasting BS 140s-170s. She is scheduled for colonoscopy tomorrow. C/o intermittent R thigh pain x3 months. It is not hurting today. High dose ibuprofen helps with the pain. No trauma, injury, numbness, or tingling. MILTON DEGROOT Attn: Accounting, [address] , [place], [address], [facility] 04/16/2024 13:56:51 OBGyn Episode Ob Episode Information Episode Created Date Number of Fetuses Patient Bloodtype Patient rh Status Prepregnancy Weight lbs Domestic Partner Domestic Partner Phone Father Name Mortgage Processing Clerk Status 11/23/19 20 1 CLOSED Fetus Data First Name Last Name Admitted to NICU Weight (g) Sex Living Outcome Pediatric Complications Fetus ID Race Codes Race Delivery Type [id number] Conrad Calculation Initial Conrad Date Initial Exam Date Initial Exam Provider Initial Ultrasound Date Last Menstrual Period Date Ultra Sound Weeks Gestation 0 Eighteen To Twenty Week Conrad Update Ultra Sound Date Fundal Height At Umbil Quickening Date Ultra Sound Latest Weeks Gestation Final Conrad Confirmed By Final Conrad Confirmed Date Final Conrad Date Ultra Sound Latest Days Gestation 0 0 Menstrual History Last Menstrual Date Menses Monthly On Bcp Conception Prior Menses Frequency Hcg Plus Date Menarche Onset Age Delivery Information Delivery Date Delivery Type Labor Anesthesia Weeks Gestation Incision Type Labor Labor Length Hrs Delivered By Post Complications Tubal Sterilization Discharge Date Comments 0 Discharge Information Feeding Method Contraceptive Method Maternal HG B and HCT Levels
== END 2024-11-16 13:20 | disposition home or self-care (01) ==
PROVIDERS: PCP Physician Assistant; Visit Provider Nurse Practitioner Family
DX: M16.11 Unilateral primary osteoarthritis, right hip (principal)
CPT/HCPCS: 20610; 77002; J1010; J2003; Q9966

== ENCOUNTER 2025-04-08 08:49 | Outpatient (CLI) | payer BC, SELFPAY ==
--- NOTE | ~2025-04-08 | MR_ITS ---
EXAMINATION: MR hip RT w con DATE: 04/08/2025 10:21 INDICATION: Right hip pain TECHNIQUE: Magnetic resonance imaging (MRI) of the right hip was performed with intra-articular cont rast but without intravenous contrast. Details of the contrast mixture and joint injection have been dictated separately. Sequences included small field of view of the affected hip with axial and sagitt al T1-weighted FS SE and T2-weighted FS FSE and coronal T1-weighted SE and T2-weighted FS FSE. Addit ional T1-weighted FGRE images in a radial pattern oriented orthogonal to the acetabular rim were obta ined for evaluation of the labrum. COMPARISON: Right hip radiographs dated 10/09/2024 FINDINGS: Bones/labrum/cartilage: Metallic magnetic field artifact associated with a left total hip arthroplasty. This obscures some of the immediately adjacent bone and soft tissues and decreased fat saturation some of the surrounding soft tissues. Alignment is normal. No fracture, avascular necrosis or pathologic marrow replacing pr ocess. Right acetabular labrum is normal. There is moderate osteoarthritis at the right hip with smal l region of high-grade chondromalacia at the anterosuperior right acetabulum with deep chondral ulcer ation and underlying subarticular cystlike change at the anterosuperior right acetabulum. And mild pa rtial-thickness cartilage loss with some chondral surface irregularity along the superior to superome dial aspect of the femoral head. Severe spondylosis at L5-S1. Fluid: Injected contrast in the right hip joint space. No left hip joint effusion. Very small amount of like ly physiologic free fluid in the deep pelvis. Soft tissues: Normal and symmetric muscle bulk and signal in the pelvis and visualized proximal thighs. The iliopso as, gluteal and proximal hamstring tendons are normal. 1 cm nabothian cyst at the cervix. There are 3 right adnexal cyst the 2 largest measuring 2.8 cm, one of which is complex with dependently layering fluid fluid level most likely layering hematocrit level in a hemorrhagic cyst. Limited evaluation of visceral organs of the pelvis is otherwise unremarkable. No pathologically enlarged pelvic/inguinal lymphadenopathy. IMPRESSION: 1. Mild to moderate osteoarthritis at the right hip with small region of high-grade chondral malacia along the anterosuperior right acetabulum. No labral tear. 2. 2.8 cm likely complex hemorrhagic cyst at the right adnexa with 2 additional simple appearing cyst s. Consider 6-12 week follow-up pelvic ultrasound to document resolution of the complex cystic lesion . Reviewed, dictated and finalized at location A. IMPRESSION: 1. Mild to moderate osteoarthritis at the right hip with small region of high-g rade chondral malacia along the anterosuperior right acetabulum. No labral tear . 2. 2.8 cm likely complex hemorrhagic cyst at the right adnexa with 2 additional simple appearing cysts. Consider 6-12 week follow-up pelvic ultrasound to docu ment resolution of the complex cystic lesion.
--- NOTE | ~2025-04-08 | XR_ITS ---
EXAMINATION: XR fl inj hip RT for MR/CT DATE: 04/08/2025 09:52 INDICATION: Right hip pain TECHNIQUE: A time-out was performed to verify the patient's name, date of , and procedure to b e performed. The procedure including the risks, benefits, and alternatives was discussed with the pat ient. Risks discussed included bleeding and infection. The patient understood the risks and agreed to proceed. The skin overlying the right hip joint was prepped and draped in usual sterile fashion. A nesthetic was administered with 1% lidocaine subcutaneously. A 22 G needle was advanced under fluoro scopic guidance into the joint. Injection of 1 mL of Omnipaque 240 confirmed intra-articular positio n of the needle. Subsequently, injectate consisting of 12 mL of 2:1:1 mixture of sterile saline:Omni paque 240:1% lidocaine mixed 200:1 with 529 mg/mL Multihance gadolinium contrast was instilled with i ntra-articular administration confirmed with intermittent fluoroscopy. The needle was removed and the entry site was cleaned and dressed. There were no immediate complications. Fluoroscopy exposure olu e was 0.2 minutes. The total number of images was 8. Total DAP was 1.689 Gycm^2. FINDINGS: Real-time fluoroscopy demonstrates the needle and contrast in the right hip joint. IMPRESSION: 1. Fluoroscopy utilized during right hip joint injection of a dilute gadolinium contrast mixture for subsequent MRI arthrogram which will be dictated separately. Reviewed, dictated and finalized at location A. IMPRESSION: 1. Fluoroscopy utilized during right hip joint injection of a dilute gadolinium contrast mixture for subsequent MRI arthrogram which will be dictated separate ly.
--- OUTSIDE RECORDS SUMMARY | 2025-04-08 08:57 | XMS_ITS | Encounter Summary ---
Author Organization [facility] Address [address] [place] [address] Care Team Providers Care Die Sizer Name Role Phone Keyon Ochoa DC Primary Care Provider [phone] Encounter Details Date Type Department Care Team (Late st Contact Info) Description 08/17/2011 SS Outpatient Visit EXTERNAL NON-[facility] DEPT Devon Aponte MD RETIRED Social History Tobacco Use Types Packs/Day Years Used Date Smoking Tobacco: Every Day Cigarettes 0.5 18 Smokeless Tobacco: Never Alcohol Use Standard Drinks/Week Comments No 0 (1 standard drink = 0.6 oz pur e alcohol) Comments No Sex and Gender Information Value Date Recorded Sex Assigned at Not on file 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
--- OUTSIDE RECORDS SUMMARY | 2025-04-08 08:57 | XMS_ITS | Encounter Summary ---
Author Organization [facility] Address [address] [place] [address] Care Team Providers Care Turf Keeper Name Role Phone Keyon Ochoa DC Primary Care Provider [phone] Encounter Details Date Type Department Care Team (Late st Contact Info) Description 07/26/2011 SS Outpatient Visit EXTERNAL NON-[facility] DEPT Devon Aponte MD RETIRED Social History Tobacco Use Types Packs/Day Years Used Date Smoking Tobacco: Every Day Cigarettes 0.5 18 Smokeless Tobacco: Never Alcohol Use Standard Drinks/Week Comments No 0 (1 standard drink = 0.6 oz pur e alcohol) Comments No Sex and Gender Information Value Date Recorded Sex Assigned at Not on file Legal Sex Female 12:13 PM ACETYLENE BURNER Gender Identity Not on file Sexual Orientation Not on file 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
--- OUTSIDE RECORDS SUMMARY | 2025-04-08 08:57 | XMS_ITS | Clinical Summary ---
Author Organization [facility] Address [address] [place] [address] Care Team Providers Care Music Writer Name Role Phone Keyon Ochoa DC Primary Care Provider [phone] Source Comments [facility],non-owned Affiliates and Associated Physician Practices is amultiple site organization consisting of ambulatory clinics and hospital sitesin [place], [place], [place] and [place]. This disclosure is being madepursuant to the Care Everywhere program and may not contain all information available regarding this patient. Last updated 18.[facility] Allergies No known active allergies Medications * Be aware that medications may not be up to date on this document. Alwaysverify current medications with the patient. hydrocodone-ac etaminophen (NORCO) 5-325 MG tablet Take 1-2 Tabs by mouth every 6 hours as needed for Pain. 40 Tab 0 1 Active acetaminophen (TYLENOL) 325 MG tablet Take 2 Tabs by mouth every 6 hours as needed for Pain. Maximum allowable Acetaminophen amount = 4 Grams (4000 mg) / 24 hours. 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 on file Not on file Not on file Last Filed Vital Signs [...] 2:53 AM CDT Height 180.3 cm (5' 11) 05/24/2011 7:06 AM CDT Body Mass Index [...] SCREENING 1975 LIPID TESTING 1975 MAMMOGRAM 1975 HIV SCREENING 1990 HEPATITIS C SCREENING 09/26/1993 DTAP/TDAP/TD VACCINES (1 - Tdap) 1994 HEPATITIS B VACCINE (1 of 3 - 19+ 3-dose series) 1994 COVID-19 VACCINE ( - 2023-2 5 season) 2024 DEPRESSION SCREENING 09/09/2024 INFLUENZA VACCINE (#1) 2025 ZOSTER VACCINE (1 of 2) 2025 HIB VACCINE Aged Out No longer eligi ble based on patient's age to complete this topic HPV VACCINE Aged Out No longer eligi ble based on patient's age to complete this topic MENINGOCOCCAL (Group B) VACC INE SHARED DECISION-MAKING Aged Out No longer eligibl e based on patient's age to complete this topic MENINGOCOCCAL GROUPS A/C/Y/W VACCINE Aged Out No longer eligible b ased on patient's age to complete this topic Advance Directives * FULL RESUSCITATION (Latest Code Status on File) Date Activated Date Inactivated Comments 05/24/2011 2:52 PM 05/25/2011 9:21 PM Care Teams Music Writer Relationship Specialty Start Date End Date Keyon Ochoa DC [address] [place] [address] PCP - General 05/16/11
--- OUTSIDE RECORDS SUMMARY | 2025-04-08 08:57 | XMS_ITS | Encounter Summary ---
Author Organization [facility] Address [address] [place] [address] Care Team Providers Care Commercial Property Manager Name Role Phone Keyon Ochoa DC Primary Care Provider [phone] Encounter Details Date Type Department Care Team (Late st Contact Info) Description 08/06/2011 SS Outpatient Visit EXTERNAL NON-[facility] DEPT Devon Aponte MD RETIRED Social History Tobacco Use Types Packs/Day Years Used Date Smoking Tobacco: Every Day Cigarettes 0.5 18 Smokeless Tobacco: Never Alcohol Use Standard Drinks/Week Comments No 0 (1 standard drink = 0.6 oz pur e alcohol) Comments No Sex and Gender Information Value Date Recorded Sex Assigned at Not on file 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
--- OUTSIDE RECORDS SUMMARY | 2025-04-08 08:58 | XMS_ITS | Referral Summary ---
Author Organization [facility] Address [address] [place] [id number] Care Team Providers Care Child Care Education Coordinator Name Role Phone Fela Guajardo Primary Care Provider [phone] Allergies No known active allergies Medications glimepiride [...] FOR 14 DAYS NEEDED. Active Dexcom G7 Assembler Production Line misc as directed 02/17/20 24 Active Dexcom [...] on file Legal Sex Female 2:20 PM HOME VISIT FIELD CARE MANAGER Gender Identity Not on file Sexual Orientation Not on file Last Filed Vital Signs Vital Sign Reading Time Taken Comments Blood Pressure 138/72 10/16/2024 8:05 AM HOME VISIT FIELD CARE MANAGER Pulse 86 10/16/2024 8:05 AM HOME VISIT FIELD CARE MANAGER Temperature 36.7 C (98.1 F) 10/16/2024 8:05 AM HOME VISIT FIELD CARE MANAGER Respiratory Rate 20 10/16/2024 8:05 AM HOME VISIT FIELD CARE MANAGER Oxygen Saturation 98% 10/16/2024 8:05 AM HOME VISIT FIELD CARE MANAGER Inhaled Oxygen Concentration - - Weight 131.5 kg (290 lb) 10/16/2024 8:05 AM HOME VISIT FIELD CARE MANAGER Height 177.8 cm (5' 10) 06/03/2024 9:20 AM CDT Body Mass Index 41.61 06/03/2024 9:20 AM CDT Plan of Treatment Not on file Insurance [facility] Care Teams Child Care Education Coordinator Relationship Specialty Start Date End Date Fela Guajardo PA [address] [place] [id number] PCP - General Physician Security Intern 10/13/23
--- OUTSIDE RECORDS SUMMARY | 2025-04-08 08:58 | XMS_ITS | Clinical Summary ---
Author Organization [facility] [address] [place] Address [address] [place] [id number] Care Team Providers Care Optical Laboratory Manager Name Role Phone Fela Guajardo Primary Care Provider Allergies No known active allergies Medications glimepiride [...] FOR 14 DAYS NEEDED. 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 Gender Identity Not on file Sexual Orientation Not on file Obstetrics History Last Filed Vital Signs Vital Sign Reading Time Taken Comments Blood Pressure 138/72 10/16/2024 8:05 AM ELECTROSTATIC POWDER COATING TECHNICIAN Pulse 86 10/16/2024 8:05 AM ELECTROSTATIC POWDER COATING TECHNICIAN Temperature 36.7 C (98.1 F) 10/16/2024 8:05 AM ELECTROSTATIC POWDER COATING TECHNICIAN Respiratory Rate 20 10/16/2024 8:05 AM ELECTROSTATIC POWDER COATING TECHNICIAN Oxygen Saturation 98% 10/16/2024 8:05 AM ELECTROSTATIC POWDER COATING TECHNICIAN Inhaled Oxygen Concentration - - Weight 131.5 kg (290 lb) 10/16/2024 8:05 AM ELECTROSTATIC POWDER COATING TECHNICIAN Height 177.8 cm (5' 10) 06/03/2024 9:20 [...] - 2023-2 5 season) 2024 12/22/2020, 11/24/2020 Breast Cancer Screening-Mammogram 07/02/2024 023, 02/28/2021 Influenza Vaccine (#1) 2025 0, 06/09/2020, 07/25/2019, Additional history exists [place] [employer] [place] [employer] [place] Care Teams Optical Laboratory Manager Relationship Specialty Start Date End Date Fela Guajardo PA [address] [place] [id number] PCP - General Physician Capacitor Assembler 10/13/23
== END 2025-04-08 08:50 | disposition home or self-care (01) ==
PROVIDERS: PCP Physician Assistant; Visit Provider Orthopaedic Surgery
DX: M16.11 Unilateral primary osteoarthritis, right hip (principal); M94.251 Chondromalacia, right hip; N83.201 Unspecified ovarian cyst, right side; N83.291 Other ovarian cyst, right side
CPT/HCPCS: 20610; 73722; 77002; A9577; Q9966

== ENCOUNTER 2025-07-30 09:31 | Outpatient (CLI) | payer BC, SELFPAY ==
--- NOTE | ~2025-07-30 | US_ITS ---
EXAMINATION: US pelvic complete w TV, 07/30/2025 9:43 WASTE CHOPPER HISTORY: Unspecified condition associated with female genital organs Comparison: None Technique: Queen-scale and color Doppler images were obtained. Findings: Uterus: Uterus anteverted 8 9.6 x 4.3 x 5.2 cm. The uterine myometrium demonstrates a heterogeneous appearance with probable intramural fibroid anterior uterine body 1.8 x 1.9 cm. . Right Ovary:Right ovary 4.4 x 2.4 x 4.1 cm, no adnexal mass, normal flow. Left Ovary: Left ovary 6.7 x 3.1 x 3.7 cm, no adnexal mass, normal flow however there are multiple large cystic lesions the largest measuring 3.2 x 3.3 cm. Free Fluid: None Impression: Probable functional left ovarian cyst. Follow-up recommended in 6 weeks to assess resolution Reviewed, dictated and finalized at location P. E CHOPPER Impression: Probable functional left ovarian cyst. Follow-up recommended in 6 weeks to asse ss resolution
== END 2025-07-30 09:32 | disposition home or self-care (01) ==
LOC: MICIMG 09:31
PROVIDERS: PCP Physician Assistant; Visit Provider Physician Assistant
DX: N94.9 Unspecified condition associated with female genital organs and menstrual cycle (principal)
CPT/HCPCS: 76830; 76856